=== PATIENT | female | born 1975 | race Caucasian/White ===

== ENCOUNTER 2018-07-12 17:48 | Emergency (ER) | payer MEDICAID ==
[~2018-07-12] VITALS: Ht 162.6 cm; Wt 68.0 kg
[~2018-07-12 17:48] MED LIST: ALPR-557 PO; AZIT-21 PO; CITA10TA70 PO; DM/P295L13 PO; DULO30CA3 PO; LMT25T PO; PRCD5U PO; PRD20T PO; TRM50T PO
--- OUTSIDE RECORDS SUMMARY | 2018-07-12 17:53 | XMS REPORT ---
Author Author [facility] Organization [facility] Address [address] [place], [place] [id number] Care Team Providers Care Syrup Mixer Helper Name Role Phone PCP Unavailable Allergies and Adverse Reactions Name Reaction Notes No known allergies Plan of Treatment Not available. Medications Active Name Start Date Estimated Completion Date SIG Comments lisinopril oral tablet 2.5 mg take 2 tablets (5 mg) by oral route once daily Lamictal oral tablet 25 mg take 1 tablet by oral route 2 times a day Cymbalta oral capsule,delayed release(DR/EC) 30 mg take 1 capsule by oral route 2 times a day Xanax oral tablet 0.5 mg take 1 tablet by oral route 2 times a day Flagyl oral tablet 500 mg take 1 tablet (500 mg) by oral route 2 times per day Problem List Description Status Onset Hypertension Active Depression Active Chronic pain Active arthritis Active Anxiety Active Essential Hypertension Active 11/26/2014 Vital Signs Date Time BP-Sys(mm[Hg] BP-Cora(mm[Hg]) HR(bpm) RR(rpm) Temp WT HT HC BMI BSA BMI Percentile O2 Sat(%) 11/11/2014 2:15:00 PM 140 mmHg 100 mmHg 97 bpm 18 rpm 99.6 F 173 lbs 64 in 29.70 kg/m2 1.88 m2 100 % Social History Name Description Comments Tobacco Current every day smoker Alcohol Use - Occasional Exercises regularly Uses seatbelts History of Procedures Not available. Results Summary Not available. History Of Immunizations Not available. History of Past Illness Name Date of Onset Comments Hypertension arthritis Anxiety Depression Chronic pain Essential Hypertension 11/26/2014 Essential Hypertension Nov 11 2014 2:16PM Payers Insurance Name Company Name Plan Name Plan Number Policy Number Policy Group Number Start Date [facility] - [facility] - [facility] Comm [id number] N/A History of Encounters Visit Date Visit Type Provider 11/11/2014 Office visit ROSALIO ATKINSON
--- OUTSIDE RECORDS SUMMARY | 2018-07-12 17:54 | XMS REPORT ---
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 Active 997077447 ALLERGIES No Known Allergies SOCIAL HISTORY Never Assessed PLAN OF CARE Activity Details Follow Up 6 Weeks Reason: VITAL SIGNS MEDICATIONS Medication Instructions Dosage Frequency Start Date End Date Duration Status Lamictal 25 MG Orally Twice a day 1 tablet 12h 24 Dec, 2014 30 days Active RESULTS No Results PROCEDURES No Known procedures IMMUNIZATIONS No Known Immunizations MEDICAL (GENERAL) HISTORY Type Description Date Medical History Hypertension Medical History Bipolar disorder Medical History Anxiety Medical History Depression Medical History arthritis in back Medical History drug abuse Medical History Tobacco User Surgical History abdominal surgery 4 wks old Surgical History genito-urinary tract surgery-LEEP 2000 Surgical History tubal ligation 02/2012 Hospitalization History Hospitalization for surgery only Hospitalization History UTI
--- OUTSIDE RECORDS SUMMARY | 2018-07-12 17:54 | XMS REPORT ---
Author Author STEPHANIE HEAD [facility] [employer] Address Unknown Phone Unavailable Care Team Providers Care Scrap Picker Name Role Phone STEPHANIE HEAD CP Unavailable Allergies, Adverse Reactions, Alerts Substance Reaction Event Type N.K.D.A. Info Not Available Non Drug Allergy Problems Problem Type Condition ICD-9 Code Onset Dates Condition Status Problem Other chronic pain 338.29 Active Problem Unspecified breast screening V76.10 Active Problem Irregular menstrual cycle 626.4 Active Problem Hypertension 401.9 Active Assessment Generalized anxiety disorder 300.02 Active Problem Bipolar disorder, unspecified 296.80 Active Problem Hyperlipidemia 272.4 Active Problem Lumbago 724.2 Active Problem Counseling on substance use and abuse V65.42 Active Problem Anxiety state, unspecified 300.00 Active Problem Bipolar I disorder, most recent episode (or current) mixed, moderate 296.62 Active Problem Major depressive disorder, recurrent episode, moderate 296.32 Active Problem Elevated blood pressure reading without diagnosis of hypertension 796.2 Active Assessment Bipolar I disorder, most recent episode (or current) mixed, moderate 296.62 Active Problem Generalized anxiety disorder 300.02 Active Problem Unspecified episodic mood disorder 296.90 Active Problem Unspecified backache 724.5 Active Problem Bipolar I disorder, most recent episode (or current) manic, severe, without mention of psychotic behavior 296.43 Active Problem Excessive or frequent menstruation 626.2 Active Problem Depressive disorder, not elsewhere classified 311 Active Problem Encounter for long-term (current) use of other medications V58.69 Active Medications Medication Code System Code Instructions Start Date End Date Status Dosage Lamictal [facility] [address]-83 100 MG Orally once a day January 21, 2015 1 tablet Cymbalta [facility] [address]-75 30 MG Orally once daily in the morning and 2 capsules orally once daily at night 1 capsule Xanax [facility] [address]-11 1 MG Orally Twice a day for 7 days then once a day for 7 days then D/C Xanax. Mar 20, 2015 1 tablet Lisinopril-Hydrochlorothiazide [facility] [address]-16 10-12.5 MG Orally Once a day 1 tablet Procedures Procedure Coding System Code Date Office Visit, Est Pt., Level 3 CPT-4 11387 Mar 20, 2015 Vital Signs Date/Time: Mar 20, 2015 Temperature 98.6 F Weight 167.7 lbs Height 64.5 in BMI 28.34 Index Blood Pressure Diastolic 80 mmHg Blood Pressure Systolic 130 mmHg Cardiac Monitoring Heart Rate 88 bpm Results No Known Results Summary Purpose [employer] Submission
--- OUTSIDE RECORDS SUMMARY | 2018-07-12 17:54 | XMS REPORT ---
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
--- OUTSIDE RECORDS SUMMARY | 2018-07-12 17:54 | XMS REPORT ---
Author Author EDER KLEIN Organization [employer] Address Unknown Phone Unavailable Care Team Providers Care Director Of Digital Marketing Name Role Phone EDER KLEIN CP Unavailable Allergies No Known Allergies Problems Problem Type Condition ICD-9 Code Onset Dates Condition Status Problem Other chronic pain 338.29 Active Problem Unspecified breast screening V76.10 Active Problem Irregular menstrual cycle 626.4 Active Problem Hypertension 401.9 Active Problem Bipolar disorder, unspecified 296.80 Active Problem Hyperlipidemia 272.4 Active Problem Lumbago 724.2 Active Problem Counseling on substance use and abuse V65.42 Active Problem Anxiety state, unspecified 300.00 Active Problem Bipolar I disorder, most recent episode (or current) mixed, moderate 296.62 Active Problem Major depressive disorder, recurrent episode, moderate 296.32 Active Problem Elevated blood pressure reading without diagnosis of hypertension 796.2 Active Problem Generalized anxiety disorder 300.02 Active [...] use of other medications V58.69 Active Medications No Known Medications Results No Known Results Summary Purpose [employer] Submission
--- OUTSIDE RECORDS SUMMARY | 2018-07-12 17:54 | XMS REPORT ---
Author Author EDER KLEIN Organization [employer] Address Unknown Phone Unavailable Care Team Providers Care Truck Jumper Name Role Phone EDER KLEIN CP Unavailable Allergies No Known Allergies Problems No Known Problems Medications No Known Medications Vital Signs Date/Time: Jun 08, 2016 Blood Pressure Diastolic 100 mmHg Blood Pressure Systolic 160 mmHg Height 64.5 in Results No Known Results Summary Purpose [employer] Submission
--- OUTSIDE RECORDS SUMMARY | 2018-07-12 17:54 | XMS REPORT ---
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 768727297 Problem Recurrent major depressive disorder, in partial remission F33.41 Active 06159365 Problem Bipolar disorder, current episode mixed, moderate F31.62 Active [id number] ALLERGIES No Information ENCOUNTERS Encounter Location Date Diagnosis [facility] [place] [id number] [place] [address] 48383- 1851 May, [facility] [place] [id number] [place] [address] 23833- 0723 Dec, Essential hypertension I10 ; Onychomycosis B35.1 and Encounter to establish care Z76.89 [facility] [place] [id number] [place] [address] 05119- 2937 November, Bipolar disorder, current episode mixed, moderate F31.62 ; 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 ; Anxiety F41.9 and Recurrent major depressive disorder, in partial remission F33.41 [facility] [id number] [place] [address] [id number] Sep, Dental caries K02.9 [facility] [id number] [place] [address] [id number] Sep, Dental examination Z01.20 [facility] [place] [id number] [place] [address] 35385- 0720 Dec, [facility] [place] [id number] [place] [address] 54485- 6655 November, Bipolar disorder, current episode mixed, moderate F31.62 and 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 [facility] [place] [address] [facility] [id number] [address] Sep, [facility] [place] [address] [facility] [id number], [place] [address] 4790 Sep, [facility] [place] [address] [facility] [id number] [place] [address] 33782- 2443 Sep, [facility] [place] [address] [facility] [id number], [place] [address] 6077 Sep, [facility] [place] [address] [facility] [id number], [place] [address]- 2723 Sep, [facility] [place] [address] [id number] [address] 1636 Sep, [facility] [place] [address] [address] 5993 Aug, [facility] [place] [address] [id number] [address] 8430 Aug, [facility] [place] [address] [address]- 5370 Jul, [facility] [place] [address] [facility] [id number], [place] [address]- 1307 Jul, [facility] [place] [address]005[address], [place] [address]- 2117 Jun, [facility] [place] [address] [facility] [id number], [place] [address]- 3849 Jun, [facility] [place] [address], [place] [address]- 0145 Jun, [facility] [address] [id number] [id number] 13 Jun, 2016 Dental examination Z01.20 and Dental caries K02.9 [facility] [place] [address] [place] [address]- 1049 Jun, [facility] [place] [address] [place] [address]- 9114 Jun, [facility] [place] [address] [id number] 7938 May, [facility] [place] [address] [place] [address]- 0511 May, [facility] [place] [address] [id number] [place] [address]- 0551 May, [facility] [place] [address] [place] [address]- 5756 May, [facility] [place] [address] 0845 Apr, [facility] [place] [address] 7625 November, [facility] [place] [address] 1591 Sep, Bipolar disorder, current episode mixed, moderate F31.62 [facility] [place] [address]005[address] 2987 Aug, Bipolar 1 disorder, mixed, moderate F31.62 [facility] [place] [address] 7239 Aug, [facility] [place] [address], [place] [address]- 4484 Jul, Pharyngitis J02.9 [facility] [place] [address] 9241 Jul, Bipolar 1 disorder, mixed, moderate F31.62 [facility] [place] [address] [id number], [place] [address]- 7595 Jun, Bipolar disorder, current episode mixed, moderate F31.62 [facility] [place] [address], [place] [address]- 5678 May, Bipolar disorder, current episode mixed, moderate F31.62 [facility] [place] [address] [place] [address] 38893- 9586 Apr, Bipolar disorder, current episode mixed, moderate F31.62 [facility] [place] [address] [place] [address] 72343- 8606 Mar, Bipolar 1 disorder, mixed, moderate 296.62 [facility] [place] [address] [place] [address] 96791- 3272 Feb, Bipolar 1 disorder, mixed, moderate 296.62 [facility] [place] [address] [place] [address] 06434- 1108 Feb, [facility] [place] [id number] [place] [address] 60416- 2320 Feb, Bipolar 1 disorder, mixed, moderate 296.62 [facility] [place] [address] [place] [address] 88650- 6717 Feb, Bipolar I disorder, most recent episode (or current) mixed, moderate 296.62 and Generalized anxiety disorder 300.02 [facility] [place] [address] [place] [address] 30102- 9034 Jan, Bipolar 1 disorder, mixed, moderate 296.62 [facility] [place] [address] [place] [address] 66762- 2405 Jan, [facility] [place] [address] [place] [address] 49054- 4170 Jan, [facility] [place] [id number] [place] [address] 83854- 4144 Jan, Bipolar 1 disorder, mixed, moderate 296.62 [facility] [place] [address] [address]- 7803 Jan, [facility] [place] [id number] [place] [address] 37183- 4180 Jan, Bipolar 1 disorder, mixed, moderate 296.62 [facility] [place] [address] [place] [address] 23979- 8360 Jan, Arthritis 716.90 ; Migraine 346.90 and Hypertension 401.9 [facility] [place] [address] [address]- 9515 Dec, [facility] [place] [id number] [place] [address] 31381- 2883 Dec, Anxiety state, unspecified 300.00 and Bipolar I disorder, most recent episode (or current) mixed, moderate 296.62 [facility] [place] [id number] [place] [address] 79190- 4603 Dec, Bipolar I disorder, most recent episode (or current) manic, severe, without mention of psychotic behavior 296.43 [facility] [place] [address] [place] [address] 27698- 4744 Dec, Bipolar I disorder, most recent episode (or current) mixed, moderate 296.62 and Generalized anxiety disorder 300.02 [facility] [place] [address] [place] [address] 80059- 8489 Dec, [facility] [place] [address], [place] [address]- 5428 Dec, [facility] [place] [address], [place] [address]- 2118 November, [facility] [place] [address] [place] [address] 52854- 7573 November, Bipolar I disorder, most recent episode (or current) manic, severe, without mention of psychotic behavior 296.43 [facility] [place] [address], [place] [address]- 3418 Oct, [facility] [place] [address], [place] [address]- 7595 Oct, [facility] [place] [address] [id number] [place] [address]- 8632 16 Sep, 2014 [facility] [place] [facility] [address] [id number] [place] [address]- 0492 16 Sep, 2014 [facility] [place] [facility] [address] [id number] [place] [address]- 2546 15 Aug, 2014 [facility] [place] [facility] [address] [id number] [place] [address]- 3666 Aug, 2014 [facility] [place] [facility] [address] [id number] [place] [address]- 0557 Aug, 2014 [facility] [place] [facility] [address] [id number] [place] [address]- 2062 Aug, 2014 [facility] [place] [facility] [address] [id number] [place] [address]- 6557 Aug, 2014 [facility] [place] [facility] [address] [id number] [place] [address]- 2299 10 Aug, 2014 [facility] [place] [facility] [address] [id number] [place] [address]- 6331 09 Aug, 2014 [facility] [place] [facility] [address] [id number] [place] [address]- 3539 09 Aug, 2014 [facility] [place] [facility] [address] [facility] [id number] [place] [address]- 5632 Jul, [facility] [place] [facility] [address] [id number] [place] [address]- 6518 Jul, [facility] [place] [facility] [address] [id number] [place] [address]- 5163 16 Jul, 2014 [facility] [place] [facility] [address] [id number] [place] [address]- 2546 Jul, [facility] [place] [facility] [address] [id number] [place] [address]- 2549 Jul, [facility] [place] [facility] [address] [id number] [place] [address]- 2156 Jul, [facility] [place] [facility] [address] [id number] [place] [address]- 3872 Jul, [facility] [place] [facility] [address] [id number] [place] [address]- 7216 Jun, [facility] [place] [facility] [address] [facility] [id number] [place] [address]- 1932 Jun, [facility] [place] [facility] [address] [id number] [place] [address]- 6996 Jun, [facility] [place] [facility] [address] [id number] [place] [address]- 4657 Jun, [facility] [place] [facility] [address] [id number] [place] [address]- 5415 Jun, [facility] [place] [facility] [address] [id number] [place] [address]- 2985 May, [facility] [place] [facility] [address] [id number], [place] [address]- 3643 May, [facility] [place] [facility] [address] [id number] [place] [address]- 8336 May, [facility] [place] [facility] [address] [id number] [place] [address]- 9442 May, [facility] [place] [facility] [address] [id number], [place] [address]- 4582 May, [facility] [place] [facility] [address] [id number], [place] [address]- 1309 May, [facility] [place] [facility] [address] [id number], [place] [address]- 6072 May, [facility] [place] [facility] [address] [id number], [place] [address]- 1504 May, [facility] [place] [facility] [address] [id number], [place] [address]- 2228 May, [facility] [place] [facility] [address] [id number] [place] [address]- 9559 May, [facility] [place] [facility] [address] [id number] [place] [address]- 0117 Apr, [facility] [place] [facility] [address] [id number] [place] [address]- 7270 Apr, [facility] [place] [facility] [address] [id number] [place] [address]- 9196 Apr, [facility] [place] [facility] [address] [id number] [place] [address]- 6914 Apr, [facility] [place] [facility] [address] [id number] [place] [address]- 2505 Apr, [facility] [place] [facility] [address] [id number] [place] [address]- 0545 Apr, [facility] [place] [facility] [address] [id number] [place] [address]- 7852 Apr, [facility] [place] [facility] [address] [id number] [place] [address]- 1993 Apr, [facility] [place] [facility] [address] [id number] [place] [address]- 4812 Apr, [facility] [place] [facility] [address] [id number] [place] [address]- 5189 Apr, [facility] [place] [facility] [address] [id number] [place] [address]- 3636 Apr, [facility] [place] [facility] [address] [id number] [place] [address]- 7258 Apr, [facility] [place] [facility] [address] [id number] [place] [address]- 2595 Apr, [facility] [place] [facility] [address] [id number] [place] [address]- 2129 Apr, [facility] [place] [facility] [address] [id number] [place] [address]- 6713 Mar, [facility] [place] [facility] [address] [id number] [place] [address]- 9569 Mar, [facility] [place] [facility] [address] [id number] [place] [address]- 6961 Mar, [facility] [place] [facility] [address] [id number] [place] [address]- 5194 Mar, [facility] [place] [facility] [address] [id number] [place] [address]- 3242 Feb, [facility] [place] [facility] [address] [id number] [place] [address]- 0440 Feb, [facility] [place] [facility] [address] [id number] [place] [address]- 1811 Feb, [facility] [place] [facility] [address] [id number] [place] [address]- 6544 Feb, [facility] [place] [facility] [address] [id number] [place] [address]- 2182 Feb, [facility] [place] [facility] [address] [id number] [place] [address]- 8393 Feb, [facility] [place] [facility] [address] [id number] [place] [address]- 6319 Feb, [facility] [place] [facility] [address] [id number] [place] [address]- 4822 Feb, [facility] [place] [facility] [address] [id number] [place] [address]- 7021 Jan, [facility] [place] [facility] [address] [id number] [place] [address]- 5309 Jan, [facility] [place] [facility] [address] [id number] [place] [address]- 3316 Jan, [facility] [place] [facility] [address] [id number] [place] [address]- 9711 Jan, [facility] [place] [facility] [address] [id number] [place] [address]- 0584 14 Jan, 2014 [facility] [place] [facility] [address] [id number] [place] [address]- 8667 14 Jan, 2014 [facility] [place] [facility] [address] [id number] [place] [address]- 8312 Jan, [facility] [place] [facility] [address] [id number] [place] [address]- 6899 Oct, [facility] [place] [facility] [address] [id number] [place] [address]- 9494 Oct, [facility] [place] [facility] [address] [id number] [place] [address]- 9055 Sep, [facility] [place] [facility] [address] [id number] [place] [address]- 4128 Sep, [facility] [place] [facility] [address] [facility] [id number] [place] [address]- 3209 Aug, [facility] [place] [facility] [address] [id number] [place] [address]- 1949 Aug, [facility] [place] [facility] [address] [facility] [id number] [place] [address]- 9458 Aug, [facility] [place] [facility] [address] [facility] [id number] [place] [address]- 2942 Aug, [facility] [place] [facility] [address] [facility] [id number] [place] [address]- 4086 Aug, [facility] [place] [facility] [address] [id number], [place] [address]- 7858 Aug, [facility] [place] [facility] [address] [id number] [place] [address]- 2020 Aug, [facility] [place] [facility] [address] [id number] [place] [address]- 5076 Aug, [facility] [place] [facility] [address] [facility] [id number], [place] [address]- 6157 Jul, [facility] [place] [facility] [address] [id number] [place] [address]- 6464 Jul, [facility] [address] [id number] [place] [address]- 4062 Jun, [facility] [address] [id number] [place] [address]- 8509 Jun, [facility] [address] [id number] [place] [address]- 0789 Jun, [facility] [address] [id number] [place] [address]- 4557 Jun, [facility] [address] [id number] [place] [address]- 7282 Jun, [facility] [address] [id number] [place] [address]- 7086 Feb, [facility] [address] [id number] [place] [address]- 7024 Jan, [facility] [address] [id number] [place] [address]- 1386 Jan, [facility] [address] [id number] [place] [address]- 9168 Dec, [facility] [address] [id number] [place] [address]- 4876 Dec, [facility] [address] [id number] [place] [address]- 9508 November, [facility] [address] [id number] [place] [address]- 3898 Oct, [facility] [place] [facility] [address] [id number] [place] [address]- 5976 Oct, [facility] [address] [id number] [place] [address]- 0011 Oct, [facility] [address] [id number] [place] [address]- 8816 Sep, [facility] [address] [facility] [id number] [place] [address]- 1566 Dec, IMMUNIZATIONS No Known Immunizations SOCIAL HISTORY Never Assessed REASON FOR VISIT refill request PLAN OF CARE VITAL SIGNS MEDICATIONS Medication Instructions Dosage Frequency Start Date End Date Duration Status Lisinopril-Hydrochlorothiazide 20-12.5 MG Orally Once a day 1 tablet 24h 30 Active RESULTS No Results PROCEDURES No Known procedures INSTRUCTIONS MEDICATIONS ADMINISTERED No Known Medications MEDICAL (GENERAL) HISTORY Type Description Date Medical History Hypertension Medical History Bipolar disorder Medical History Anxiety Medical History Depression Medical History arthritis in back Medical History drug abuse Medical History Tobacco User Medical History hypoglycemia Surgical History abdominal surgery 4 wks old Surgical History genito-urinary tract surgery-LEEP 2000 Surgical History tubal ligation 02/2012 Surgical History stomach surgery 1976 Hospitalization History Hospitalization for surgery only Hospitalization History UTI
--- OUTSIDE RECORDS SUMMARY | 2018-07-12 17:55 | XMS REPORT ---
Author Author [facility], [facility] eClinicalWorks Address Unknown Phone Unavailable Care Team Providers Care Fnps Name Role Phone [facility], [facility] CP Unavailable Allergies No Known Allergies Problems [...] diagnosis of hypertension 796.2 Active Assessment Bipolar 1 disorder, mixed, moderate 296.62 Active Problem Generalized anxiety [...] medications V58.69 Active Medications No Known Medications Procedures Procedure Coding System Code Date CARE COORDINATION CPT-4 S0281 Mar 24, 2015 Results No Known Results Summary Purpose eClinicalWorks Submission
--- OUTSIDE RECORDS SUMMARY | 2018-07-12 17:55 | XMS REPORT ---
Author Author [facility], [facility] eClinicalWorks Address Unknown Phone Unavailable Care Team Providers Care Stripping And Booking Machine Operator Name Role Phone [facility], [facility] CP Unavailable Allergies No Known Allergies Problems Problem Type Condition Code Onset Dates Condition Status Problem Other [...] Active Assessment Bipolar 1 disorder, mixed, moderate F31.62 Active Problem Generalized anxiety disorder 300.02 Active [...] Medications Procedures Procedure Coding System Code Date HEALTH PROMOTION CPT-4 S0280 Aug 20, 2015 Results No Known Results Summary Purpose eClinicalWorks Submission
--- OUTSIDE RECORDS SUMMARY | 2018-07-12 17:55 | XMS REPORT ---
Author Author [facility], [facility] eClinicalWorks Address Unknown Phone Unavailable Care Team Providers Care Sheet Metal Worker Apprentice Name Role Phone [facility], [facility] CP Unavailable Allergies No Known Allergies [...] diagnosis of hypertension 796.2 Active Assessment Bipolar disorder, current episode mixed, moderate F31.62 Active Problem Generalized anxiety [...] System Code Date HEALTH PROMOTION CPT-4 S0280 Jun 19, 2015 Results No Known Results Summary Purpose eClinicalWorks Submission
--- OUTSIDE RECORDS SUMMARY | 2018-07-12 17:55 | XMS REPORT ---
Author Author [facility], [facility] eClinicalWorks Address Unknown Phone Unavailable Care Team Providers Care Cook Roast Name Role Phone [facility], [facility] CP Unavailable Allergies No Known Allergies [...] System Code Date HEALTH PROMOTION CPT-4 S0280 Mar 20, 2015 Results No Known Results Summary Purpose eClinicalWorks Submission
--- OUTSIDE RECORDS SUMMARY | 2018-07-12 17:55 | XMS REPORT ---
Author Author [facility], [facility] eClinicalWorks Address Unknown Phone Unavailable Care Team Providers Care Select Banker Name Role Phone [facility], [facility] CP Unavailable Allergies No Known [...] System Code Date CARE COORDINATION CPT-4 S0281 May 12, 2015 Results No Known Results Summary Purpose eClinicalWorks Submission
--- OUTSIDE RECORDS SUMMARY | 2018-07-12 17:55 | XMS REPORT ---
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
--- OUTSIDE RECORDS SUMMARY | 2018-07-12 17:55 | XMS REPORT ---
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 Unknown Non Drug Allergy Jun, Unknown SOCIAL HISTORY No smoking Hx information available PLAN OF CARE Activity Details Follow Up prn Reason:will call VITAL SIGNS MEDICATIONS Medication Instructions Dosage Frequency Start Date End Date Duration Status Lisinopril-Hydrochlorothiazide 10-12.5 MG Orally Once a day 1 tablet 24h Active RESULTS No Results PROCEDURES Procedure Date Ordered Related Diagnosis Body Site LTD ORAL EVALUATION - PROBLEM FOCUS Jul 12, 2016 INTRAORL-PERIAPICAL 1 FILM 75890 Jul 12, 2016 EXTRAC ERUPTED TOOTH/EXPOSED ROOT Jul 12, 2016 BITEWING - SINGLE FILM Jul 12, 2016 IMMUNIZATIONS No Known Immunizations
--- OUTSIDE RECORDS SUMMARY | 2018-07-12 17:55 | XMS REPORT ---
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
--- OUTSIDE RECORDS SUMMARY | 2018-07-12 17:55 | XMS REPORT ---
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
--- OUTSIDE RECORDS SUMMARY | 2018-07-12 17:55 | XMS REPORT ---
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
--- OUTSIDE RECORDS SUMMARY | 2018-07-12 17:55 | XMS REPORT ---
Author Author [facility], [facility] eClinicalWorks Address Unknown Phone Unavailable Care Team Providers Care Plugger Worker Name Role Phone [facility], [facility] Unavailable Allergies No Known [...] System Code Date [facility] [employer] CPT-4 S0280 Jul 27, 2015 Results No Known Results Summary Purpose eClinicalWorks Submission
--- OUTSIDE RECORDS SUMMARY | 2018-07-12 17:55 | XMS REPORT ---
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
--- OUTSIDE RECORDS SUMMARY | 2018-07-12 17:56 | XMS REPORT ---
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 234258973 Problem Recurrent major depressive disorder, in partial remission F33.41 Active 37320355 Problem Bipolar disorder, current episode mixed, moderate F31.62 Active 568370474 ALLERGIES No Known Allergies ENCOUNTERS Encounter Location Date Diagnosis [facility] [id number] [place] [address]- [address]871 Feb, [facility] [address] [address] Dec, Essential hypertension I10 ; Onychomycosis B35.1 and Encounter to establish care Z76.89 [facility] [id number] [place] [address]115- 4942 November, Bipolar disorder, current episode mixed, moderate F31.62 ; 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 ; Anxiety F41.9 and Recurrent major depressive disorder, in partial remission F33.41 [facility] [id number] [place] [id number] Sep, Dental caries K02.9 [facility] [id number] [place] [address] [id number] Sep, Dental examination Z01.20 [facility] [id number] [place] [address] 17845- 9829 Dec, [facility] [id number] [place] [address] 93255- 2113 November, Bipolar disorder, current episode mixed, moderate F31.62 and 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 [facility] [address] [id number], [place] [address] Sep, [facility] [address] [facility] [id number], [place] [address] 7076 Sep, [facility] [id number] [place] [address]997- 7891 Sep, [facility] [address] [facility] [id number], [place] [address] 6[address] Sep, [facility] [address] [facility] [id number] [place] [address] 61231- 9932 Sep, [facility] [address] [facility] [id number], [place] [address] 3108 Sep, [facility] [address] [id number] [address] 3[address] Aug, [facility] [address] [facility] [id number], [place] [address] 57[address] Aug, [facility] [address] [id number], [place] [address] 60[address] Jul, [facility] [address] [facility] [id number], [place] [address] 8[address] Jul, [facility] [address], [place] [address] Jun, [facility] [address] [facility] [id number], [place] [address] 6316 Jun, [facility] [address] [facility] [id number], [place] [address] 5[address] Jun, [facility] [address] [id number] [id number] 13 Jun, 2016 Dental examination Z01.20 and Dental caries K02.9 [facility] [address] [place] [address] 79[address] Jun, [facility] [address] [address] Jun, [facility] [address] [address] May, [facility] [id number] [place] [address], [place] [address]- 6047 May, [facility] [address] [id number] [place] [address]- 1472 May, [facility] [address] [place] [address], [place] [address]- 3027 May, [facility] [address] 65[address] Apr, [facility] [address] [place] [address] November, [facility] [address] [address] [address] Sep, Bipolar disorder, current episode mixed, moderate F31.62 [facility] [address] [address] Aug, Bipolar 1 disorder, mixed, moderate F31.62 [facility] [address] [address] Aug, [facility] [address], [place] [address] 9506 Jul, Pharyngitis J02.9 [facility] [address] [address] Jul, Bipolar 1 disorder, mixed, moderate F31.62 [facility] [address] [id number] [address] 2084 Jun, Bipolar disorder, current episode mixed, moderate F31.62 [facility] [address], [place] [address]- 0311 May, Bipolar disorder, current episode mixed, moderate F31.62 [facility] [address] [place] [address] 69585- 5449 Apr, Bipolar disorder, current episode mixed, moderate F31.62 [facility] [address] [place] [address] 03416- 8947 Mar, Bipolar 1 disorder, mixed, moderate 296.62 [facility] [address] [place] [address] 23016- 9575 Feb, Bipolar 1 disorder, mixed, moderate 296.62 [facility] [address] [place] [address] 10431- 8635 Feb, [facility] [id number] [place] [address] 18375- 1434 Feb, Bipolar 1 disorder, mixed, moderate 296.62 [facility] [address] [place] [address] 28513- 2716 Feb, Bipolar I disorder, most recent episode (or current) mixed, moderate 296.62 and Generalized anxiety disorder 300.02 [facility] [address] [place] [address] 91227- 4357 Jan, Bipolar 1 disorder, mixed, moderate 296.62 [facility] [address], [place] [address]- 0320 Jan, [facility] [id number] [place] [address] 14651- 0706 Jan, [facility] [id number] [place] [address] 25020- 7486 Jan, Bipolar 1 disorder, mixed, moderate 296.62 [facility] [address], [place] [address]- 8468 Jan, [facility] [id number] [place] [address] 88595- 5839 Jan, Bipolar 1 disorder, mixed, moderate 296.62 [facility] [id number] [place] [address] 44417- 4427 Jan, Arthritis 716.90 ; Migraine 346.90 and Hypertension 401.9 [facility] [address], [place] [address]- 2425 Dec, [facility] [id number] [place] [address] 14480- 2881 Dec, Anxiety state, unspecified 300.00 and Bipolar I disorder, most recent episode (or current) mixed, moderate 296.62 [facility] [id number] [place] [address] 11148- 7875 Dec, Bipolar I disorder, most recent episode (or current) manic, severe, without mention of psychotic behavior 296.43 [facility] [address] [place] [address] 53171- 5106 Dec, Bipolar I disorder, most recent episode (or current) mixed, moderate 296.62 and Generalized anxiety disorder 300.02 [facility] [address] [place] [address] 33849- 7526 Dec, [facility] [address], [place] [address]- 9002 Dec, [facility] [address], [place] [address]- 8726 November, [facility] [address] [place] [address] 33049- 9155 November, Bipolar I disorder, most recent episode (or current) manic, severe, without mention of psychotic behavior 296.43 [facility] [address], [place] [address]- 2220 Oct, [facility] [address], [place] [address]- 5807 Oct, [facility] [id number] [place] [address]- 9155 16 Sep, 2014 [facility] [place] [facility] [address] [id number] [place] [address]- 3426 Sep, [facility] [place] [facility] [address] [id number] [place] [address]- 9076 15 Aug, 2014 [facility] [place] [facility] [address] [id number] [place] [address]- 5756 Aug, 2014 [facility] [place] [facility] [address] [id number] [place] [address]- 9663 Aug, 2014 [facility] [place] [facility] [address] [id number] [place] [address]- 4295 Aug, 2014 [facility] [place] [facility] [address] [id number] [place] [address]- 8457 Aug, 2014 [facility] [place] [facility] [address] [id number] [place] [address]- 5916 Aug, 2014 [facility] [place] [facility] [address] [id number] [place] [address]- 8289 Aug, [facility] [place] [facility] [address] [id number] [place] [address]- 9771 Aug, [facility] [place] [facility] [address] [id number] [place] [address]- 9033 Jul, [facility] [place] [facility] [address] [id number] [place] [address]- 1540 Jul, [facility] [place] [facility] [address] [id number] [place] [address]- 2666 Jul, [facility] [place] [facility] [address] [id number] [place] [address]- 7531 Jul, [facility] [place] [facility] [address] [id number] [place] [address]- 6476 Jul, [facility] [place] [facility] [address] [id number] [place] [address]- 5491 Jul, [facility] [place] [facility] [address] [id number] [place] [address]- 8763 Jul, [facility] [place] [facility] [address] [id number] [place] [address]- 8146 Jun, [facility] [place] [facility] [address] [id number] [place] [address]- 1465 Jun, [facility] [place] [facility] [address] [id number] [place] [address]- 3232 Jun, [facility] [place] [facility] [address] [id number] [place] [address]- 9802 Jun, [facility] [place] [facility] [address] [id number] [place] [address]- 6720 Jun, [facility] [place] [facility] [address] [id number] [place] [address]- 5349 May, [facility] [place] [facility] [address] [id number] [place] [address]- 6570 May, [facility] [place] [facility] [address] [id number] [place] [address]- 1335 May, [facility] [place] [facility] [address] [id number] [place] [address]- 0692 May, [facility] [place] [facility] [address] [id number], [place] [address]- 0481 May, [facility] [place] [facility] [address] [id number], [place] [address]- 5013 May, [facility] [place] [facility] [address] [id number] [place] [address]- 6722 May, [facility] [place] [facility] [address] [id number], [place] [address]- 7151 May, [facility] [place] [facility] [address] [id number], [place] [address]- 0981 May, [facility] [place] [facility] [address] [id number] [place] [address]- 4879 May, [facility] [place] [facility] [address] [id number] [place] [address]- 3215 Apr, [facility] [place] [facility] [address] [id number] [place] [address]- 8861 Apr, [facility] [place] [facility] [address] [id number] [place] [address]- 6439 Apr, [facility] [place] [facility] [address] [id number] [place] [address]- 6443 Apr, [facility] [place] [facility] [address] [id number] [place] [address]- 8888 Apr, [facility] [place] [facility] [address] [id number] [place] [address]- 4931 Apr, [facility] [place] [facility] [address] [id number] [place] [address]- 4645 Apr, [facility] [place] [facility] [address] [id number] [place] [address]- 8643 Apr, [facility] [place] [facility] [address] [id number] [place] [address]- 2066 Apr, [facility] [place] [facility] [address] [id number] [place] [address]- 4958 Apr, [facility] [place] [facility] [address] [id number] [place] [address]- 3851 Apr, [facility] [place] [facility] [address] [id number] [place] [address]- 0437 Apr, [facility] [place] [facility] [address] [id number] [place] [address]- 1940 Apr, [facility] [place] [facility] [address] [id number] [place] [address]- 6679 Apr, [facility] [place] [facility] [address] [id number] [place] [address]- 8933 Mar, [facility] [place] [facility] [address] [id number] [place] [address]- 0083 Mar, [facility] [place] [facility] [address] [id number] [place] [address]- 8841 Mar, [facility] [place] [facility] [address] [id number] [place] [address]- 9579 Mar, [facility] [place] [facility] [address] [id number] [place] [address]- 9780 Feb, [facility] [place] [facility] [address] [id number] [place] [address]- 1795 Feb, [facility] [place] [facility] [address] [id number] [place] [address]- 7944 Feb, [facility] [place] [facility] [address] [id number] [place] [address]- 0073 Feb, [facility] [place] [facility] [address] [id number] [place] [address]- 3345 Feb, [facility] [place] [facility] [address] [id number] [place] [address]- 8500 Feb, [facility] [place] [facility] [address] [id number] [place] [address]- 7156 Feb, [facility] [place] [facility] [address] [id number] [place] [address]- 3106 Feb, [facility] [place] [facility] [address] [id number] [place] [address]- 4189 Jan, [facility] [place] [facility] [address] [id number] [place] [address]- 9604 Jan, [facility] [place] [facility] [address] [id number] [place] [address]- 9182 Jan, [facility] [place] [facility] [address] [id number] [place] [address]- 9791 Jan, [facility] [place] [facility] [address] [id number] [place] [address]- 4670 14 Jan, 2014 [facility] [place] [facility] [address] [id number] [place] [address]- 2961 14 Jan, 2014 [facility] [place] [facility] [address] [id number] [place] [address]- 5395 Jan, [facility] [place] [facility] [address] [id number] [place] [address]- 3913 Oct, [facility] [place] [facility] [address] [id number] [place] [address]- 4217 Oct, [facility] [place] [facility] [address] [id number] [place] [address]- 9072 Sep, [facility] [place] [facility] [address] [id number] [place] [address]- 7272 Sep, [facility] [place] [facility] [address] [facility] [id number] [place] [address]- 0998 Aug, [facility] [place] [facility] [address] [facility] [id number] [place] [address]- 9285 Aug, [facility] [place] [facility] [address] [facility] [id number] [place] [address]- 9381 Aug, [facility] [place] [facility] [address] [facility] [id number] [place] [address]- 0556 Aug, [facility] [place] [facility] [address] [facility] [id number] [place] [address]- 9464 Aug, [facility] [place] [facility] [address] [facility] [id number], [place] [address]- 4022 Aug, [facility] [place] [facility] [address] [id number] [place] [address]- 9085 Aug, [facility] [place] [facility] [address] [facility] [id number] [place] [address]- 7996 Aug, [facility] [place] [facility] [address] [facility] [id number] [place] [address]- 3275 Jul, [facility] [place] [facility] [address] [id number] [place] [address]- 2896 Jul, [facility] [address] [id number] [place] [address]- 6778 Jun, [facility] [address] [id number] [place] [address]- 6619 Jun, [facility] [address] [id number] [place] [address]- 9377 Jun, [facility] [address] [id number] [place] [address]- 6566 Jun, [facility] [address] [id number] [place] [address]- 2219 Jun, [facility] [address] [id number] [place] [address]- 65[address] Feb, [facility] [address] [id number] [place] [address] Jan, [facility] [address] [id number] [place] [address] Jan, [facility] [address] [id number] [place] [address] Dec, [facility] [place] [facility] [address] [id number] [place] [address] Dec, [facility] [address] [id number], [place] [address] November, [facility] [place] [facility] [address] [id number] [place] [address] Oct, [facility] [place] [facility] [address] [id number] [place] [address] Oct, [facility] [place] [facility] [address] [id number] [place] [address] Oct, [facility] [place] [facility] [address] [id number] [place] [address] Sep, [facility] [address] [facility] [id number] [place] [address] Dec, IMMUNIZATIONS No Known Immunizations SOCIAL HISTORY Never Assessed REASON FOR VISIT Blood Pressure-awoods PLAN OF CARE Activity Details Follow Up 3 Months Reason: VITAL SIGNS Height 64.5 in 2018-01-03 Weight 191 lbs 2018-01-03 Temperature 98.3 degrees Fahrenheit 2018-01-03 Heart Rate 86 bpm 2018-01-03 Respiratory Rate 18 2018-01-03 BMI 32.28 kg/m2 2018-01-03 Blood pressure systolic 115 mmHg 2018-01-03 Blood pressure diastolic 72 mmHg 2018-01-03 MEDICATIONS Medication Instructions Dosage Frequency Start Date End Date Duration Status Lisinopril-Hydrochlorothiazide 20-12.5 MG Orally Once a day 1 tablet 24h 30 days Active Zoloft 50 mg Orally Once a day 1 tablet 24h November, 30 day(s) Active Terbinafine HCl 250 MG Orally Once a day 1 tablet 24h Dec,Dec 12 Weeks Active Rexulti 2 MG Orally Once a day 1 tablet 24h November, 30 day(s) Active RESULTS No Results PROCEDURES No Known [...]
--- OUTSIDE RECORDS SUMMARY | 2018-07-12 17:56 | XMS REPORT ---
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 Active 448053499 Problem Recurrent major depressive disorder, in partial remission F33.41 Active 99041942 Problem Bipolar disorder, current episode mixed, moderate F31.62 Active [id number] ALLERGIES No Known Allergies ENCOUNTERS Encounter Location Date Diagnosis [facility] [id number] [place] [address] 20111- 8895 Feb, [facility] [id number] [place] [address] 30375- 3499 Dec, Essential hypertension I10 ; Onychomycosis B35.1 and Encounter to establish care Z76.89 [facility] [id number] [place] [address] 28099- 2887 November, Bipolar disorder, current episode mixed, moderate F31.62 ; 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 ; Anxiety F41.9 and Recurrent major depressive disorder, in partial remission F33.41 [facility] [id number] [id number] Sep, Dental caries K02.9 [facility] [id number] [place] [id number] Sep, Dental examination Z01.20 [facility] [id number] [place] [address] 02366- 8234 Dec, [facility] [address] [place] [address] 3397 November, Bipolar disorder, current episode mixed, moderate F31.62 and 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 [facility] [id number] [address] 45[address] Sep, [facility] [id number], [place] [address] 3620 Sep, [facility] [id number] [place] [address] 63943- 2444 Sep, [facility] [id number] [place] [address] 08027- 8669 Sep, [facility] [id number] [place] [address] 98323- 9278 Sep, [facility] [id number] [place] [address] 29700- 4817 Sep, [facility] [id number] [place] [address] 96430- 2688 Aug, [facility] [address], [place] [address] 5974 Aug, [facility] [address], [place] [address] 4859 Jul, [facility] [address], [place] [address] 2171 Jul, [facility] [address], [place] [address] 4599 Jun, [facility] [address], [place] [address] 4306 Jun, [facility] [address], [place] [address] 1863 Jun, [facility] [address] [id number] [id number] 13 Jun, 2016 Dental examination Z01.20 and Dental caries K02.9 [facility] [id number], [place] [address] 8584 Jun, [facility] [id number] 3496 Jun, [facility] [id number] 8594 May, [facility] [id number] [place] [address], [place] [address]- 7751 May, [facility] [id number] [place] [address]- 2901 May, [facility] [id number] [place] [address], [place]- 3629 May, [facility] [id number] [place] [address]- 5632 Apr, [facility] [address], [place] [address] 3858 November, [facility] [address], [place] [address]- 5287 Sep, Bipolar disorder, current episode mixed, moderate F31.62 [facility] [address], [place] [address]- 9465 Aug, Bipolar 1 disorder, mixed, moderate F31.62 [facility] [address], [place] [address]- 9102 Aug, [facility] [address], [place] [address]- 9526 Jul, Pharyngitis J02.9 [facility] [address] 9707 Jul, Bipolar 1 disorder, mixed, moderate F31.62 [facility] [address], [place] [address]- 5277 Jun, Bipolar disorder, current episode mixed, moderate F31.62 [facility] [address], [place] [address] 1891 May, Bipolar disorder, current episode mixed, moderate F31.62 [facility] [address] [place] [address] 21150- 3866 Apr, Bipolar disorder, current episode mixed, moderate F31.62 [facility] [id number] [place] [address] 569869- 0440 Mar, Bipolar 1 disorder, mixed, moderate 296.62 [facility] [id number] [place] [address] 01390- 5362 Feb, Bipolar 1 disorder, mixed, moderate 296.62 [facility] [id number] [place] [address] 65388- 3797 Feb, [facility] [id number] [place] [address] 50615- 2310 Feb, Bipolar 1 disorder, mixed, moderate 296.62 [facility] [id number] [place] [address] 40363- 3898 Feb, Bipolar I disorder, most recent episode (or current) mixed, moderate 296.62 and Generalized anxiety disorder 300.02 [facility] [address], [place] [address]- 8726 Jan, Bipolar 1 disorder, mixed, moderate 296.62 [facility] [address], [place] [address]- 6579 Jan, [facility] [id number] [place] [address] 51124- 1778 Jan, [facility] [id number] [place] [address] 92828- 8344 Jan, Bipolar 1 disorder, mixed, moderate 296.62 [facility] [address], [place] [address]- 3169 Jan, [facility] [id number] [address]- 0869 Jan, Bipolar 1 disorder, mixed, moderate 296.62 [facility] [id number] [place] [address] 71139- 2106 Jan, Arthritis 716.90 ; Migraine 346.90 and Hypertension 401.9 [facility] [address], [place] [address]- 8334 Dec, [facility] [id number] [place] [address] 49675- 4235 Dec, Anxiety state, unspecified 300.00 and Bipolar I disorder, most recent episode (or current) mixed, moderate 296.62 [facility] [id number] [place] [address] 34080- 1440 Dec, Bipolar I disorder, most recent episode (or current) manic, severe, without mention of psychotic behavior 296.43 [facility] [id number] [place] [address] 34882- 6306 Dec, Bipolar I disorder, most recent episode (or current) mixed, moderate 296.62 and Generalized anxiety disorder 300.02 [facility] [address] [place] [address] 18501- 6304 Dec, [facility] [address], [place] [address]- 5325 Dec, [facility] [address], [place] [address]- 1838 November, [facility] [id number] [place] [address] 62520- 4794 November, Bipolar I disorder, most recent episode (or current) manic, severe, without mention of psychotic behavior 296.43 [facility] [address], [place] [address]- 7659 Oct, [facility] [address], [place] [address]- 9554 Oct, [facility] [id number] [place] [address]- [address] 16 Sep, 2014 [facility] [place] [facility] [address] [id number] [place] [address]- 7318 Sep, [facility] [place] [facility] [address] [id number] [place] [address]- 8846 15 Aug, 2014 [facility] [place] [facility] [address] [id number] [place] [address]- 4482 Aug, 2014 [facility] [place] [facility] [address] [id number] [place] [address]- 5724 Aug, 2014 [facility] [place] [facility] [address] [id number] [place] [address]- 9510 Aug, 2014 [facility] [place] [facility] [address] [id number] [place] [address]- 4586 Aug, 2014 [facility] [place] [facility] [address] [id number] [place] [address]- 0959 Aug, [facility] [place] [facility] [address] [id number] [place] [address]- 5031 Aug, [facility] [place] [facility] [address] [facility] [id number] [place] [address]- 7856 Aug, [facility] [place] [facility] [address] [id number] [place] [address]- 8744 Jul, [facility] [place] [facility] [address] [id number], [place] [address]- 6076 Jul, [facility] [place] [facility] [address] [id number] [place] [address]- 2444 Jul, [facility] [place] [facility] [address] [id number] [place] [address]- 4727 Jul, [facility] [place] [facility] [address] [id number] [place] [address]- 1691 Jul, [facility] [place] [facility] [address] [id number], [place] [address]- 0631 Jul, [facility] [place] [facility] [address] [id number] [place] [address]- 7446 Jul, [facility] [place] [facility] [address] [id number] [place] [address]- 6349 Jun, [facility] [place] [facility] [address] [id number] [place] [address]- 4407 Jun, [facility] [place] [facility] [address] [id number] [place] [address]- 3734 Jun, [facility] [place] [facility] [address] [id number] [place] [address]- 3422 Jun, [facility] [place] [facility] [address] [id number] [place] [address]- 2817 Jun, [facility] [place] [facility] [address] [id number] [place] [address]- 0738 May, [facility] [place] [facility] [address] [id number] [place] [address]- 6286 May, [facility] [place] [facility] [address] [id number] [place] [address]- 9428 May, [facility] [place] [facility] [address] [id number] [place] [address]- 4941 May, [facility] [place] [facility] [address] [id number], [place] [address]- 5317 May, [facility] [place] [facility] [address] [id number], [place] [address]- 0589 May, [facility] [place] [facility] [address] [id number] [place] [address]- 8351 May, [facility] [place] [facility] [address] [id number] [place] [address]- 2108 May, [facility] [place] [facility] [address] [id number] [place] [address]- 4796 May, [facility] [place] [facility] [address] [id number] [place] [address]- 6602 May, [facility] [place] [facility] [address] [id number] [place] [address]- 7255 Apr, [facility] [place] [facility] [address] [id number] [place] [address]- 0297 Apr, [facility] [place] [facility] [address] [id number] [place] [address]- 6277 Apr, [facility] [place] [facility] [address] [id number] [place] [address]- 7918 Apr, [facility] [place] [facility] [address] [id number] [place] [address]- 7124 Apr, [facility] [place] [facility] [address] [id number] [place] [address]- 4257 Apr, [facility] [place] [facility] [address] [id number] [place] [address]- 4779 Apr, [facility] [place] [facility] [address] [id number] [place] [address]- 5344 Apr, [facility] [place] [facility] [address] [id number] [place] [address]- 3543 Apr, [facility] [place] [facility] [address] [id number] [place] [address]- 5930 Apr, [facility] [place] [facility] [address] [id number] [place] [address]- 8655 Apr, [facility] [place] [facility] [address] [id number] [place] [address]- 7530 Apr, [facility] [place] [facility] [address] [id number] [place] [address]- 6566 Apr, [facility] [place] [facility] [address] [id number] [place] [address]- 6064 Apr, [facility] [place] [facility] [address] [id number] [place] [address]- 2877 Mar, [facility] [place] [facility] [address] [id number] [place] [address]- 4540 Mar, [facility] [place] [facility] [address] [id number] [place] [address]- 7164 Mar, [facility] [place] [facility] [address] [id number] [place] [address]- 1543 Mar, [facility] [place] [facility] [address] [id number] [place] [address]- 3582 Feb, [facility] [place] [facility] [address] [id number] [place] [address]- 2093 Feb, [facility] [place] [facility] [address] [id number] [place] [address]- 5795 Feb, [facility] [place] [facility] [address] [id number] [place] [address]- 5400 Feb, [facility] [place] [facility] [address] [id number] [place] [address]- 1045 Feb, [facility] [place] [facility] [address] [id number] [place] [address]- 7504 Feb, [facility] [place] [facility] [address] [id number] [place] [address]- 3649 Feb, [facility] [place] [facility] [address] [id number] [place] [address]- 2900 Feb, [facility] [place] [facility] [address] [id number] [place] [address]- 6143 Jan, [facility] [place] [facility] [address] [id number] [place] [address]- 2910 Jan, [facility] [place] [facility] [address] [id number] [place] [address]- 0599 Jan, [facility] [place] [facility] [address] [id number] [place] [address]- 5470 Jan, [facility] [place] [facility] [address] [id number] [place] [address]- 0493 14 Jan, 2014 [facility] [place] [facility] [address] [id number] [place] [address]- 4435 14 Jan, 2014 [facility] [place] [facility] [address] [id number] [place] [address]- 5676 11 Jan, 2014 [facility] [place] [facility] [address] [id number] [place] [address]- 2376 17 Oct, 2013 [facility] [place] [facility] [address] [id number] [place] [address]- 9857 Oct, [facility] [place] [facility] [address] [id number] [place] [address]- 2145 Sep, [facility] [place] [facility] [address] [id number] [place] [address]- 3626 Sep, [facility] [place] [facility] [address] [id number] [place] [address]- 6072 Aug, [facility] [place] [facility] [address] [id number] [place] [address]- 7476 Aug, [facility] [place] [facility] [address] [id number] [place] [address]- 5848 Aug, [facility] [place] [facility] [address] [facility] [id number] [place] [address]- 0690 Aug, [facility] [place] [facility] [address] [id number] [place] [address]- 8921 Aug, [facility] [place] [facility] [address] [id number] [place] [address]- 7953 Aug, [facility] [place] [facility] [address] [id number] [place] [address]- 0046 Aug, [facility] [place] [facility] [address] [id number] [place] [address]- 8326 17 Aug, 2013 [facility] [place] [facility] [address] [facility] [id number] [place] [address]- 6186 Jul, [facility] [address] [id number] [place] [address]- 0417 Jul, [facility] [place] [facility] [address] [id number] [place] [address]- 6093 Jun, [facility] [place] [facility] [address] [id number] [place] 3733 Jun, [facility] [place] [facility] [address] [id number] [place] [address]- 2732 Jun, [facility] [address] [id number] [place] [address]- 9467 Jun, [facility] [place] [facility] [address] [id number] [place] [address]- 6419 Jun, [facility] [place] [facility] [address] [id number] [place] [address]- 9624 Feb, [facility] [place] [facility] [address] [id number] [place] [address]- 6999 Jan, [facility] [place] [facility] [address] [id number] [place] [address]- 4083 Jan, [facility] [place] [facility] [address] [id number] [place] [address]- 7122 Dec, [facility] [place] [facility] [address] [id number] [place] [address]- 6873 Dec, [facility] [place] [facility] [address] [id number] [place] [address]- 3166 November, [facility] [place] [facility] [address] [id number] [place] [address]- 0607 Oct, [facility] [place] [facility] [address] [id number] [place] [address]- 6695 Oct, [facility] [place] [facility] [address] [id number] [place] [address]- 7779 Oct, [facility] [place] [facility] [address] [id number] [place] [address]- 4726 Sep, [facility] [address] [facility] [id number], [place] [address]- 7852 Dec, IMMUNIZATIONS No Known Immunizations SOCIAL HISTORY Never Assessed REASON FOR VISIT f/u pt reports being fidgity/anxious- states it might be rexulti. Freida PLAN OF CARE Activity Details Follow Up 2 Months, 3 Months Reason: VITAL SIGNS Height 64.5 in 2017-12-27 Weight 192.5 lbs 2017-12-27 Heart Rate 96 bpm 2017-12-27 Respiratory Rate 18 2017-12-27 BMI 32.53 kg/m2 2017-12-27 Blood pressure systolic 120 mmHg 2017-12-27 Blood pressure diastolic 70 mmHg 2017-12-27 MEDICATIONS Medication Instructions Dosage Frequency Start Date End Date Duration Status Rexulti 2 MG Orally Once a day 1 tablet 24h November, 30 day(s) Active Ibuprofen 800 MG Orally every 6 hrs 1 tablet 6h 4 days Active Zoloft 50 mg Orally Once a day 1 tablet 24h November, 30 day(s) Active Rexulti 3 MG Orally Once a day 1 tablet 24h Active Lisinopril-Hydrochlorothiazide 20-12.5 MG Orally Once a day 1 tablet 24h Active Lisinopril Not-Taking RESULTS No Results PROCEDURES No Known procedures [...]
--- OUTSIDE RECORDS SUMMARY | 2018-07-12 17:57 | XMS REPORT ---
Author Author MIGRATION, PROVIDER Organization Unknown Address Unknown Phone Unavailable Care Team Providers Care Bonding Machine Operator Name Role Phone MIGRATION, PROVIDER Unavailable Unavailable PROBLEMS Type Condition ICD9-CM Code [id number] Code Onset Dates Condition Status SNOMED Code Problem Essential (primary) hypertension I10 Active [id number] ALLERGIES No Information ENCOUNTERS Encounter Location Date Diagnosis [employer] [facility] [address] [place] [address] [id number] Aug, [facility] [address] [place] [address] [id number] Aug, Allergic sinusitis J30.9 ; Pharyngitis due to other organism J02.8 and Essential (primary) hypertension I10 [facility] [address] [place] [address] [id number] Jun, [employer] [address] [place] [address] [id number] Jun, [employer] [address] [place] [address] [id number] Mar, [facility] [address] [place] [address] [id number] Jul, IMMUNIZATIONS No Known Immunizations SOCIAL HISTORY Never Assessed REASON FOR VISIT [facility] [place] CARE VITAL SIGNS MEDICATIONS Unknown Medications RESULTS No Results PROCEDURES No Known procedures INSTRUCTIONS MEDICATIONS ADMINISTERED No Known Medications MEDICAL (GENERAL) HISTORY Type Description Date Medical History bipolar disorder Medical History hypertension Surgical History tubal ligation Hospitalization History urinary tract infection
--- OUTSIDE RECORDS SUMMARY | 2018-07-12 17:57 | XMS REPORT ---
Author Author Rosio Silver [facility] Address [address] [place] [id number] Care Team Providers Care Swim Coach Name Role Phone Surya Silvershae Unavailable PROBLEMS Type Condition ICD9-CM Code [id number] Code Onset Dates Condition Status SNOMED Code Problem Essential (primary) hypertension I10 Active [id number] ALLERGIES No Known Allergies ENCOUNTERS Encounter Location Date [facility] [address] [place] [id number] Aug, [facility] [address] [phone] Aug, Allergic sinusitis J30.9 ; Pharyngitis due to other organism J02.8 and Essential (primary) hypertension I10 [facility] [address] [place] [phone] Jun, [facility] [address] [phone] Jun, [facility] [place] [address] [place] [id number] Mar, [address] [phone] Jul, IMMUNIZATIONS No Known Immunizations SOCIAL HISTORY Never Assessed REASON FOR VISIT Blood pressure check, Allergy & sinus issues PLAN OF CARE Activity Details Follow Up prn Reason:as needed/allergy re-assessment/HTN VITAL SIGNS Temperature 99.1 degrees Fahrenheit 2017-09-07 Heart Rate 73 /min 2017-09-07 Oximetry 98 % 2017-09-07 Weight 199.8 lbs 2017-09-07 Height 64 in 2017-09-07 BMI 34.29 kg/m2 2017-09-07 Blood pressure systolic 144 mm Hg 2017-09-07 Blood pressure diastolic 89 mm Hg 2017-09-07 MEDICATIONS Medication Instructions Dosage Frequency Start Date End Date Duration Status Pseudoephedrine HCl 30 MG Orally once daily 1 tablet as needed 24h Aug, 30 days Active Lisinopril-Hydrochlorothiazide 20-12.5 MG Orally Once a day take 1 tablet by Oral route 1 time per day 24h Aug, 30 day(s) Active Rexulti 2 MG Orally Once a day 1 tablet 24h 30 day(s) Active RESULTS No Results PROCEDURES No Known procedures INSTRUCTIONS MEDICATIONS ADMINISTERED No Known Medications MEDICAL (GENERAL) HISTORY Type Description Date Medical History bipolar disorder Medical History hypertension Surgical History tubal ligation Hospitalization History urinary tract infection
--- OUTSIDE RECORDS SUMMARY | 2018-07-12 17:57 | XMS REPORT ---
Author Author PRAFUL KIRBY 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 Active 632582365 Problem Recurrent major depressive disorder, in partial remission F33.41 Active 32948899 Problem Bipolar disorder, current episode mixed, moderate F31.62 Active 393727069 ALLERGIES No Known Allergies ENCOUNTERS Encounter Location Date Diagnosis [place] [address] [address] Feb, [place] [address] [address] Dec, Essential hypertension I10 ; Onychomycosis B35.1 and Encounter to establish care Z76.89 [place] [address] [place] [id number] [place] [address] 12465- 0728 November, Bipolar disorder, current episode mixed, moderate F31.62 ; 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 [address] [place] [id number] [place] [address] [id number] Sep, Dental caries K02.9 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 [facility] [address] [address] 07[address] Sep, [facility] [address] [id number] [address] 4749 Sep, [facility] [address] [place] [id number] [place] [address] 94055- 5895 Sep, [facility] [address] [facility] [id number] [place] [address] 26892- 7061 Sep, [facility] [address] [place] [id number] [place] [address] 74499- 3248 Sep, [facility] [address] [place] [id number] [place] [address] 17429- 8698 Sep, [facility] [address] [place] [id number] [place] [address] 10473- 0685 Aug, [facility] [id number] [place] [address] 66377- 2503 Aug, [facility] [address] [place] [id number] [place] [address] 60319- 0764 Jul, [facility] [address] [address]- 8927 Jul, [facility] [id number] [address]- 4321 Jun, [facility] [address] [address]- 4154 Jun, [facility] [id number] [place] [address] 843716- 3270 Jun, [facility] [address] [id number] 13 Jun, 2016 Dental examination Z01.20 and Dental caries K02.9 [facility] [address] [address] 2050 Jun, [facility] [id number] 6446 Jun, [facility] [address] 7458 May, [facility] [address] 8[address] May, [facility] [address] [place] [id number] [place] [address] 597434- 0685 May, [facility] [id number] [place] [address] 072931- 6892 May, [facility] [address], [place] [address]- 6974 Apr, [facility] [id number] [place] [address] 84961- 0109 November, [facility] [address] [address]- 8603 Sep, Bipolar disorder, current episode mixed, moderate F31.62 [facility] [address], [place] [address]- 6605 Aug, Bipolar 1 disorder, mixed, moderate F31.62 [facility] [address], [place] [address]- 2263 Aug, [facility] [address], [place] [address]- 0767 Jul, Pharyngitis J02.9 [facility] [address], [place] [address]- 4542 Jul, Bipolar 1 disorder, mixed, moderate F31.62 [facility] [address], [place] [address]- 8098 Jun, Bipolar disorder, current episode mixed, moderate F31.62 [facility] [address] [place] [id number] [address]- 5327 May, Bipolar disorder, current episode mixed, moderate F31.62 [facility] [address] [place] [id number] [place] [address] 42521- 8150 Apr, Bipolar disorder, current episode mixed, moderate F31.62 [facility] [id number] [place] [address] 82668- 3023 Mar, Bipolar 1 disorder, mixed, moderate 296.62 [facility] [address] [place] [id number] [place] [address] 97477- 0781 Feb, Bipolar 1 disorder, mixed, moderate 296.62 [facility] [address] [place] [id number] [place] [address] 29278- 4765 Feb, [facility] [address] [place] [id number] [place] [address] 76295- 0408 Feb, Bipolar 1 disorder, mixed, moderate 296.62 [facility] [address] [place] [id number] [place] [address] 20558- 9585 Feb, Bipolar I disorder, most recent episode (or current) mixed, moderate 296.62 and Generalized anxiety disorder 300.02 [facility] [id number] [place] [address] 67935- 0746 Jan, Bipolar 1 disorder, mixed, moderate 296.62 [facility] [address], [place] [address]- 4628 Jan, [facility] [address] [place] [id number] [place] [address] 95897- 7601 Jan, [facility] [id number] [place] [address] 82699- 1982 Jan, Bipolar 1 disorder, mixed, moderate 296.62 [facility] [address], [place] [address]- 0746 Jan, [facility] [id number] [place] [address] 20611- 4767 Jan, Bipolar 1 disorder, mixed, moderate 296.62 [facility] [address], [place] [address]- 8772 Jan, Arthritis 716.90 ; Migraine 346.90 and Hypertension 401.9 [facility] [address] [place] [id number] [place] [address] 61498- 1789 Dec, [facility] [address] [place] [id number] [place] [address] 37104- 1221 Dec, Anxiety state, unspecified 300.00 and Bipolar I disorder, most recent episode (or current) mixed, moderate 296.62 [facility] [address] [place] [id number] [place] [address] 63268- 1081 Dec, Bipolar I disorder, most recent episode (or current) manic, severe, without mention of psychotic behavior 296.43 [facility] [address] [place] [id number] [place] [address] 79319- 8734 Dec, Bipolar I disorder, most recent episode (or current) mixed, moderate 296.62 and Generalized anxiety disorder 300.02 [facility] [address] [place] [id number] [place] [address] 93347- 3496 Dec, [facility] [address] [place] [id number] [place] [address] 83666- 5662 Dec, [facility] [id number] [place] [address] 57916- 5917 November, [facility] [address] [place] [id number] [place] [address] 49539- 1858 November, Bipolar I disorder, most recent episode (or current) manic, severe, without mention of psychotic behavior 296.43 [facility] [address] [place] [id number] [place] [address] 94518- 9818 Oct, [facility] [address] [place] [id number] [place] [address] 03784- 1954 Oct, [facility] [address] [place] [id number] [place] [address] 47328- 7304 16 Sep, 2014 [facility] [place] [facility] [address] [id number] [place] [address]- 0196 16 Sep, 2014 [facility] [place] [facility] [address] [id number] [place] [address]- 4256 15 Aug, 2014 [facility] [place] [facility] [address] [facility] [id number] [place] [address]- 1766 Aug, 2014 [facility] [place] [facility] [address] [id number] [place] [address]- 4260 Aug, 2014 [facility] [place] [facility] [address] [id number] [place] [address]- 9470 Aug, 2014 [facility] [place] [facility] [address] [id number] [place] [address]- 0397 Aug, [facility] [place] [facility] [address] [facility] [id number] [place] [address]- 4096 Aug, [facility] [place] [facility] [address] [facility] [id number] [place] [address]- 3923 09 Aug, 2014 [facility] [place] [facility] [address] [id number] [place] [address]- 1853 09 Aug, 2014 [facility] [place] [facility] [address] [facility] [id number] [place] [address]- 8828 Jul, [facility] [place] [facility] [address] [facility] [id number] [place] [address]- 0819 Jul, [facility] [place] [facility] [address] [id number] [place] [address]- 5393 Jul, [facility] [place] [facility] [address] [id number] [place] [address]- 6519 Jul, [facility] [place] [facility] [address] [facility] [id number] [place] [address]- 4128 Jul, [facility] [place] [facility] [address] [facility] [id number] [address]- 2195 Jul, [facility] [place] [facility] [address] [id number] [place] [address]- 7986 Jul, [facility] [place] [facility] [address] [id number] [place] [address]- 2913 Jun, [facility] [place] [facility] [address] [id number] [place] [address]- 4483 Jun, [facility] [place] [facility] [address] [id number] [place] [address]- 6969 Jun, [facility] [place] [facility] [address] [id number] [place] [address]- 9288 Jun, [facility] [place] [facility] [address] [id number] [place] [address]- 6546 Jun, [facility] [place] [facility] [address] [id number] [place] [address]- 8908 May, [facility] [place] [facility] [address] [id number] [place] [address]- 8269 May, [facility] [place] [facility] [address] [id number] [place] [address]- 2220 May, [facility] [place] [facility] [address] [id number] [place] [address]- 5328 May, [facility] [place] [facility] [address] [id number] [place] [address]- 7507 May, [facility] [place] [facility] [address] [id number] [place] [address]- 3338 May, [facility] [place] [facility] [address] [id number] [place] [address]- 1624 May, [facility] [place] [facility] [address] [id number] [place] [address]- 4742 May, [facility] [place] [facility] [address] [id number] [place] [address]- 5929 May, [facility] [place] [facility] [address] [id number] [place] [address]- 9864 May, [facility] [place] [facility] [address] [id number] [place] [address]- 5192 Apr, [facility] [place] [facility] [address] [id number] [place] [address]- 3541 Apr, [facility] [place] [facility] [address] [id number] [place] [address]- 8298 Apr, [facility] [place] [facility] [address] [id number] [place] [address]- 0408 Apr, [facility] [place] [facility] [address] [id number] [place] [address]- 8565 Apr, [facility] [place] [facility] [address] [id number] [place] [address]- 4336 Apr, [facility] [place] [facility] [address] [id number] [place] [address]- 1720 Apr, [facility] [place] [facility] [address] [id number] [place] [address]- 9907 Apr, [facility] [place] [facility] [address] [id number] [place] [address]- 2912 Apr, [facility] [place] [facility] [address] [id number] [place] [address]- 3572 Apr, [facility] [place] [facility] [address] [id number] [address]- 6959 Apr, [facility] [place] [facility] [address] [id number], [place] [address]- 2275 Apr, [facility] [place] [facility] [address] [id number] [place] [address]- 1642 Apr, [facility] [place] [facility] [address] [id number] [place] [address]- 9017 Apr, [facility] [place] [facility] [address] [id number] [place] [address]- 2106 30 Mar, 2014 [facility] [place] [facility] [address] [id number] [place] [address]- 8770 30 Mar, 2014 [facility] [place] [facility] [address] [id number] [place] [address]- 4630 Mar, [facility] [place] [facility] [address] [id number] [place] [address]- 3902 Mar, [facility] [place] [facility] [address] [id number] [place] [address]- 3270 Feb, [facility] [place] [facility] [address] [id number] [place] [address]- 0708 Feb, [facility] [place] [facility] [address] [id number] [place] [address]- 4320 Feb, [facility] [place] [facility] [address] [id number] [place] [address]- 3969 Feb, [facility] [place] [facility] [address] [id number] [place] [address]- 3126 Feb, [facility] [place] [facility] [address] [id number] [place] [address]- 3998 Feb, [facility] [place] [facility] [address] [id number] [place] [address]- 3944 Feb, [facility] [place] [facility] [address] [id number] [place] [address]- 8911 Feb, [facility] [place] [facility] [address] [id number] [place] [address]- 5190 Jan, [facility] [place] [facility] [address] [id number] [place] [address]- 0760 Jan, [facility] [place] [facility] [address] [id number] [place] [address]- 5120 Jan, [facility] [place] [facility] [address] [id number] [place] [address]- 2150 Jan, [facility] [place] [facility] [address] [id number] [place] [address]- 9377 Jan, [facility] [place] [facility] [address] [id number] [place] [address]- 1241 14 Jan, 2014 [facility] [place] [facility] [address] [id number] [place] [address]- 0045 Jan, [facility] [place] [facility] [address] [id number] [place] [address]- 2349 17 Oct, 2013 [facility] [place] [facility] [address] [id number] [place] [address]- 0340 Oct, [facility] [place] [facility] [address] [id number] [place] [address]- 2800 Sep, [facility] [place] [facility] [address] [id number] [place] [address]- 0947 Sep, [facility] [place] [facility] [address] [id number] [place] [address]- 1927 Aug, [facility] [place] [facility] [address] [id number] [place] [address]- 5254 Aug, [facility] [place] [facility] [address] [id number] [place] [address]- 7576 Aug, [facility] [place] [facility] [address] [id number] [place] [address]- 0149 Aug, [facility] [place] [facility] [address] [id number] [place] [address]- 0224 Aug, [facility] [place] [facility] [address] [id number], [place] [address]- 5482 Aug, [facility] [place] [facility] [address] [id number] [place] [address]- 1192 Aug, [facility] [place] [facility] [address] [id number] [place] [address]- 6816 Aug, [facility] [place] [facility] [address] [id number] [place] [address]- 0326 Jul, [facility] [place] [facility] [address] [id number] [place] [address]- 4790 Jul, [facility] [address] [id number] [place] [address]- 1288 Jun, [facility] [address] [id number] [place] [address] Jun, [facility] [address] [id number] [place] [address]- 1592 Jun, [facility] [address] [id number] [place] [address]- 7608 Jun, [facility] [address] [id number] [place] [address]- 4996 Jun, [facility] [address] [id number] [place] [address]- 9752 Feb, [facility] [address] [id number] [place] [address]- 3612 Jan, [facility] [address] [id number] [place] [address]- 4924 Jan, [facility] [address] [id number] [place] [address]- 4758 Dec, [facility] [address] [id number] [place] [address]- 9613 Dec, [facility] [address] [id number] [place] [address]- 9361 November, [facility] [address] [id number] [place] [address]- 9131 Oct, [facility] [address] [id number] [place] [address]- 8146 Oct, [facility] [address] [id number] [place] [address]- 8480 Oct, [facility] [address] [id number] [place] [address]- 0107 Sep, [facility] [address] [facility] [id number] [place] 8847 15 Dec, 2011 IMMUNIZATIONS No Known Immunizations SOCIAL HISTORY Never Assessed REASON FOR VISIT 1 WK TE PLAN OF CARE Activity Details Follow Up prn Reason:MARIA G VITAL SIGNS Blood pressure systolic 130 mmHg 2017-10-12 Blood pressure diastolic 78 mmHg 2017-10-12 MEDICATIONS Medication Instructions Dosage Frequency Start Date End Date Duration Status Lisinopril-Hydrochlorothiazide 20-12.5 MG Orally Once a day 1 tablet 24h Active Ibuprofen 800 MG Orally every 6 hrs 1 tablet 6h 4 days Active Rexulti Active Lamictal 25 MG Orally Twice a day 1 tablet 12h 24 Dec, 2014 30 days Not-Taking Lisinopril Active RESULTS No Results PROCEDURES Procedure Date Ordered Result Body Site EXTRAC ERUPTED TOOTH/EXPOSED ROOT October 12, 2017 INSTRUCTIONS MEDICATIONS ADMINISTERED No Known Medications MEDICAL (GENERAL) HISTORY Type Description Date Medical History Hypertension Medical History Bipolar disorder Medical History Anxiety Medical History Depression Medical History arthritis in back Medical History drug abuse Medical History Tobacco User Medical History hypoglycemia Surgical History abdominal surgery 4 wks old Surgical History genito-urinary tract surgery-LEEP 2000 Surgical History tubal ligation 02/2012 Surgical History stomach surgery 1975 Hospitalization History Hospitalization for surgery only Hospitalization History UTI
--- OUTSIDE RECORDS SUMMARY | 2018-07-12 17:57 | XMS REPORT ---
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 Active 556126396 Problem Recurrent major depressive disorder, in partial remission F33.41 Active 53140088 Problem Bipolar disorder, current episode mixed, moderate F31.62 Active 830223611 ALLERGIES No Known Allergies ENCOUNTERS Encounter Location Date Diagnosis [place] [address] [address] Feb, [place] [address] [address] Dec, Essential hypertension I10 ; Onychomycosis B35.1 and Encounter to establish care Z76.89 [place] [address] [place] [id number] [place] [address]30- 0632 November, Bipolar disorder, current episode mixed, moderate F31.62 ; 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 [address], [place] [address] Sep, [facility] [address] [id number], [place] [address] Sep, [facility] [id number] [place] [address]15- 1539 Sep, [facility] [address] [facility] [id number] [place] [address] 58794- 8984 Sep, [facility] [id number] [place] [address]01- 9345 Sep, [facility] [id number] [place] [address] 23238- 5666 Sep, [facility] [id number] [place] [address] 82839- 9288 Aug, [facility] [id number] [place] [address] 42465- 7270 Aug, [facility] [id number] [place] [address] 53239- 1850 Jul, [facility] [address]65[address] [address] 5[address] Jul, [facility] [address]65[address] [address] Jun, [facility] [address]65[address] [address] Jun, [facility] [address] [place] [address] 126496- 7377 Jun, [facility] [address] [id number] 13 Jun, 2016 Dental examination Z01.20 and Dental caries K02.9 [facility] [address], [place] [address] Jun, [facility] [address] [address] Jun, [facility] [address] [address] May, [facility] [address] [address] May, [facility] [address] [place] [id number] [place] [address] 289145- 2044 May, [facility] [address] [place] [address] 759768- 1456 May, [facility] [address], [place] [address] 9634 Apr, [facility] [address] [place] [address] 85950- 0691 November, [facility] [address], [place] [address]- 7926 Sep, Bipolar disorder, current episode mixed, moderate F31.62 [facility] [address], [place] [address] 8862 Aug, Bipolar 1 disorder, mixed, moderate F31.62 [facility] [address], [place] [address]- 7398 Aug, [facility] [address], [place] [address]- 4429 Jul, Pharyngitis J02.9 [facility] [address], [place] [address]- 7581 Jul, Bipolar 1 disorder, mixed, moderate F31.62 [facility] [address], [place] [address] Jun, Bipolar disorder, current episode mixed, moderate F31.62 [facility] [address] [place] [id number], [place] [address]- 2678 May, Bipolar disorder, current episode mixed, moderate F31.62 [facility] [address] [place] [id number] [place] [address] 58506- 6513 Apr, Bipolar disorder, current episode mixed, moderate F31.62 [facility] [address] [place] [address] 49198- 7472 Mar, Bipolar 1 disorder, mixed, moderate 296.62 [facility] [address] [place] [id number] [place] [address] 07347- 5214 Feb, Bipolar 1 disorder, mixed, moderate 296.62 [facility] [address] [place] [id number] [place] [address] 07939- 5717 Feb, [facility] [address] [place] [address] [id number] [place] [address] 93364- 0578 Feb, Bipolar 1 disorder, mixed, moderate 296.62 [facility] [address] [place] [id number] [place] [address] 98380- 5499 Feb, Bipolar I disorder, most recent episode (or current) mixed, moderate 296.62 and Generalized anxiety disorder 300.02 [facility] [address] [place] [address] 39898- 6521 Jan, Bipolar 1 disorder, mixed, moderate 296.62 [facility] [address], [place] [address]- [address] Jan, [facility] [id number] [place] [address] 90754- 2073 Jan, [facility] [address] [place] [address] 93568- 7465 Jan, Bipolar 1 disorder, mixed, moderate 296.62 [facility] [address], [place] [address]- 2640 Jan, [facility] [address] [place] [address] 52483- 8048 Jan, Bipolar 1 disorder, mixed, moderate 296.62 [facility] [address], [place] [address]- 8389 Jan, Arthritis 716.90 ; Migraine 346.[address] [facility] [address] [place] [id number] [place] [address] 73964- 4597 Dec, [facility] [address] [place] [id number] [place] [address] 44283- 0838 Dec, Anxiety state, unspecified 300.00 and Bipolar I disorder, most recent episode (or current) mixed, moderate 296.62 [facility] [address] [place] [id number] [place] [address] 73127- 0501 Dec, Bipolar I disorder, most recent episode (or current) manic, severe, without mention of psychotic behavior 296.43 [facility] [address] [place] [address] [id number] [place] [address] 67489- 6996 Dec, Bipolar I disorder, most recent episode (or current) mixed, moderate 296.62 and Generalized anxiety disorder 300.02 [facility] [address] [place] [id number] [place] [address] 90484- 1561 Dec, [facility] [id number] [place] [address] 62070- 4981 Dec, [facility] [address] [place] [address] 29783- 4420 November, [facility] [address] [place] [address] [id number] [place] [address] 28815- 8576 November, Bipolar I disorder, most recent episode (or current) manic, severe, without mention of psychotic behavior 296.43 [facility] [address] [id number] [place] [address] 22792- 4684 Oct, [facility] [id number] [place] [address] 81319- 2808 Oct, [facility] [address] [id number] [place] [address] 06796- 8632 16 Sep, 2014 [facility] [place] [facility] [address] [id number] [place] [address]- 7108 16 Sep, 2014 [facility] [place] [facility] [address] [id number] [place] [address]- 1046 15 Aug, 2014 [facility] [place] [facility] [address] [facility] [id number] [place] [address]- 0596 Aug, 2014 [facility] [place] [facility] [address] [id number] [place] [address]- 0675 Aug, 2014 [facility] [place] [facility] [address] [id number] [place] [address]- 9674 Aug, 2014 [facility] [place] [facility] [address] [id number] [place] [address]- 5132 Aug, [facility] [place] [facility] [address] [facility] [id number] [place] [address]- 1076 Aug, [facility] [place] [facility] [address] [facility] [id number] [place] [address]- 6334 09 Aug, 2014 [facility] [place] [facility] [address] [id number] [place] [address]- 0468 09 Aug, 2014 [facility] [place] [facility] [address] [facility] [id number] [place] [address]- 5227 Jul, [facility] [place] [facility] [address] [facility] [id number] [place] [address]- 7628 Jul, [facility] [place] [facility] [address] [id number] [place] [address]- 2314 Jul, [facility] [place] [facility] [address] [id number] [place] [address]- 7769 Jul, [facility] [place] [facility] [address] [facility] [id number] [place] [address]- 8917 Jul, [facility] [place] [facility] [address] [facility] [id number], [place] [address]- 9120 Jul, [facility] [place] [facility] [address] [id number] [place] [address]- 0346 Jul, [facility] [place] [facility] [address] [id number] [place] [address]- 4665 Jun, [facility] [place] [facility] [address] [id number] [place] [address]- 7557 Jun, [facility] [place] [facility] [address] [id number] [place] [address]- 3916 Jun, [facility] [place] [facility] [address] [id number] [place] [address]- 2572 Jun, [facility] [place] [facility] [address] [id number] [place] [address]- 4919 Jun, [facility] [place] [facility] [address] [id number] [place] [address]- 9349 May, [facility] [place] [facility] [address] [id number] [place] [address]- 0010 May, [facility] [place] [facility] [address] [id number] [place] [address]- 1176 May, [facility] [place] [facility] [address] [id number] [place] [address]- 4178 May, [facility] [place] [facility] [address] [id number] [place] [address]- 2008 May, [facility] [place] [facility] [address] [id number] [place] [address]- 2552 May, [facility] [place] [facility] [address] [id number] [place] [address]- 0595 May, [facility] [place] [facility] [address] [id number] [place] [address]- 8890 May, [facility] [place] [facility] [address] [id number] [place] [address]- 6009 May, [facility] [place] [facility] [address] [id number] [place] [address]- 3438 May, [facility] [place] [facility] [address] [id number] [place] [address]- 9149 Apr, [facility] [place] [facility] [address] [id number] [place] [address]- 6040 Apr, [facility] [place] [facility] [address] [id number] [place] [address]- 2064 Apr, [facility] [place] [facility] [address] [id number] [place] [address]- 2635 Apr, [facility] [place] [facility] [address] [id number] [place] [address]- 4128 Apr, [facility] [place] [facility] [address] [id number] [place] [address]- 5215 Apr, [facility] [place] [facility] [address] [id number] [place] [address]- 8381 Apr, [facility] [place] [facility] [address] [id number] [place] [address]- 5595 Apr, [facility] [place] [facility] [address] [id number] [place] [address]- 7904 Apr, [facility] [place] [facility] [address] [id number] [place] [address]- 0012 Apr, [facility] [place] [facility] [address] [id number], [place] [address]- 3127 Apr, [facility] [place] [facility] [address] [id number], [place] [address]- 1768 Apr, [facility] [place] [facility] [address] [id number] [place] [address]- 6911 Apr, [facility] [place] [facility] [address] [id number] [place] [address]- 1432 Apr, [facility] [place] [facility] [address] [id number] [place] [address]- 4824 30 Mar, 2014 [facility] [place] [facility] [address] [id number] [place] [address]- 9680 30 Mar, 2014 [facility] [place] [facility] [address] [id number] [place] [address]- 7198 Mar, [facility] [place] [facility] [address] [id number] [place] [address]- 3965 Mar, [facility] [place] [facility] [address] [id number] [place] [address]- 5320 Feb, [facility] [place] [facility] [address] [id number] [place] [address]- 6568 Feb, [facility] [place] [facility] [address] [id number] [place] [address]- 9741 Feb, [facility] [place] [facility] [address] [id number] [place] [address]- 9417 Feb, [facility] [place] [facility] [address] [id number] [place] [address]- 7503 Feb, [facility] [place] [facility] [address] [id number] [place] [address]- 3165 Feb, [facility] [place] [facility] [address] [id number] [place] [address]- 7637 Feb, [facility] [place] [facility] [address] [id number] [place] [address]- 8596 Feb, [facility] [place] [facility] [address] [id number] [place] [address]- 6923 Jan, [facility] [place] [facility] [address] [id number] [place] [address]- 0565 Jan, [facility] [place] [facility] [address] [id number] [place] [address]- 5089 Jan, [facility] [place] [facility] [address] [id number] [place] [address]- 2556 Jan, [facility] [place] [facility] [address] [id number] [place] [address]- 9439 Jan, [facility] [place] [facility] [address] [id number] [place] [address]- 0609 14 Jan, 2014 [facility] [place] [facility] [address] [id number] [place] [address]- 0477 Jan, [facility] [place] [facility] [address] [id number] [place] [address]- 5256 17 Oct, 2013 [facility] [place] [facility] [address] [id number] [place] [address]- 6538 Oct, [facility] [place] [facility] [address] [id number] [place] [address]- 0994 Sep, [facility] [place] [facility] [address] [id number] [place] [address]- 0017 Sep, [facility] [place] [facility] [address] [id number] [place] [address]- 6683 Aug, [facility] [place] [facility] [address] [id number] [place] [address]- 3761 Aug, [facility] [place] [facility] [address] [id number] [place] [address]- 4500 Aug, [facility] [place] [facility] [address] [id number] [place] [address]- 1128 Aug, [facility] [place] [facility] [address] [id number] [place] [address]- 7136 Aug, [facility] [place] [facility] [address] [id number], [place] [address]- 9637 Aug, [facility] [place] [facility] [address] [id number] [place] [address]- 3702 Aug, [facility] [place] [facility] [address] [id number] [place] [address]- 5076 Aug, [facility] [place] [facility] [address] [id number] [place] [address]- 6647 Jul, [facility] [place] [facility] [address] [id number] [place] [address]- 5298 Jul, [facility] [address] [id number] [place] [address]- 8584 Jun, [facility] [address] [id number] [place] 0712 Jun, [facility] [address] [id number] [place] [address]- 9662 Jun, [facility] [address] [id number] [place] [address]- 6814 Jun, [facility] [address] [id number] [place] [address]- 9905 Jun, [facility] [address] [id number] [place] [address]- 7790 Feb, [facility] [address] [id number] [place] [address]- 8778 Jan, [facility] [address] [id number] [place] [address]- 0174 Jan, [facility] [address] [id number] [place] [address]- 2449 Dec, [facility] [address] [id number] [place] [address]- 4941 Dec, [facility] [address] [id number] [place] [address]- 1709 November, [facility] [address] [id number] [place] [address]- 6759 Oct, [facility] [address] [id number] [place] [address]- 0171 Oct, [facility] [address] [id number] [place] [address]- 1186 Oct, [facility] [address] [id number] [place] [address]- 9002 Sep, [facility] [address] [facility] [id number] [place] [address] 15 Dec, 2011 IMMUNIZATIONS No Known Immunizations SOCIAL HISTORY Never Assessed REASON FOR VISIT ALEX PLAN OF CARE Activity Details Follow Up prn Reason:TE VITAL SIGNS Height 64.5 in 2017-10-03 Blood pressure systolic 135 mmHg 2017-10-03 Blood pressure diastolic 87 mmHg 2017-10-03 MEDICATIONS Medication Instructions Dosage Frequency Start Date End Date Duration Status Lisinopril Active Lisinopril-Hydrochlorothiazide 10-12.5 MG Orally Once a day 1 tablet 24h 21 days Active Lamictal 25 MG Orally Twice a day 1 tablet 12h 24 Dec, 2014 30 days Not-Taking Amoxicillin 500 MG Orally 3 times a day 1 capsule 8h 13 Sep, 2017 7 days Active Rexulti Active RESULTS No Results PROCEDURES Procedure Date Ordered Result Body Site LTD ORAL EVALUATION - PROBLEM FOCUS October 03, 2017 INTRAORL-PERIAPICAL 1 FILM [id number] October 03, 2017 INSTRUCTIONS MEDICATIONS ADMINISTERED No Known Medications [...]
--- OUTSIDE RECORDS SUMMARY | 2018-07-12 17:57 | XMS REPORT ---
Author Author MIGRATION, PROVIDER Organization Unknown Address Unknown Phone Unavailable Care Team Providers Care Human Resources Hr Representative Name Role Phone MIGRATION, PROVIDER Unavailable Unavailable PROBLEMS Type Condition ICD9-CM Code [id number] Code Onset Dates Condition Status SNOMED Code Problem Essential (primary) hypertension I10 Active [id number] ALLERGIES No Information ENCOUNTERS Encounter Location Date Diagnosis [facility] [address] [place] [address] [id number] Aug, [facility] [address] [place] [address] [id number] Aug, Allergic sinusitis J30.9 ; Pharyngitis due to other organism J02.8 and Essential (primary) hypertension I10 [facility] [address] [place] [address] [id number] Jun, [facility] [address] [place] [address] [id number] Jun, [facility] [address] [place] [address] [id number] Mar, [facility] [address] [place] [address] [id number] Jul, IMMUNIZATIONS No Known Immunizations SOCIAL HISTORY Never Assessed REASON FOR VISIT [facility] PLAN OF CARE VITAL SIGNS MEDICATIONS Medication Instructions Dosage Frequency Start Date End Date Duration Status Ibuprofen 800 mg take 1 tablet by Oral route 3 times per day with food as needed for pain Jul, Active Lisinopril-Hydrochlorothiazide 10-12.5 mg take 1 tablet by oral route once daily Mar, Active RESULTS No Results PROCEDURES No Known procedures INSTRUCTIONS MEDICATIONS ADMINISTERED No Known Medications MEDICAL (GENERAL) HISTORY Type Description Date Medical History bipolar disorder Medical History hypertension Surgical History tubal ligation Hospitalization History urinary tract infection
--- OUTSIDE RECORDS SUMMARY | 2018-07-12 17:57 | XMS REPORT ---
Author Author Rosio Silver [facility] Address [address] [place] [address] Care Team Providers Care Pipe Bending Machine Operator Name Role Phone Rosio Silver Unavailable PROBLEMS Type Condition ICD9-CM Code [id number] Code Onset Dates Condition Status SNOMED Code Problem Essential (primary) hypertension I10 Active [id number] ALLERGIES No Information SOCIAL HISTORY Never Assessed PLAN OF CARE VITAL SIGNS MEDICATIONS Unknown Medications RESULTS No Results PROCEDURES No Known procedures IMMUNIZATIONS No Known Immunizations MEDICAL (GENERAL) HISTORY Type Description Date Medical History bipolar disorder Medical History hypertension Surgical History tubal ligation Hospitalization History urinary tract infection
--- OUTSIDE RECORDS SUMMARY | 2018-07-12 17:58 | XMS REPORT | Continuity of Care Document ---
Author Author [facility] Address Unknown Phone Unavailable Allergies Active Description Code Type Severity Reaction Onset Reported/Identified Relationship to Patient Clinical Status Yes No Known Drug Allergies [id number] Drug Allergy Unknown N/A 11/20/2012 Medications Medication Packaging Start Date Stop Date Route Dosage Sig Rexulti 2 MG Oral Tablet UD 201607/05/2017 ORAL 2MG TAKE 1 TABLET BY MOUTH EVERY MORNING Rexulti 2 MG Oral Tablet UD 201608/04/2017 ORAL 2MG TAKE 1 TABLET BY MOUTH EVERY [id number] appointment is 07/18 at 10 am Rexulti 2 MG Oral Tablet UD 201712/01/2017 ORAL 2MG TAKE 1 TABLET BY MOUTH EVERY MORNING Rexulti 3 MG Oral Tablet UD 201711/13/2017 ORAL 3MG TAKE 1 TABLET BY MOUTH EVERY MORNING Rexulti 3 MG Oral Tablet UD 201701/04/2018 ORAL 3MG TAKE 1 TABLET BY MOUTH EVERY MORNING Problems Date Dx Coded Attending Type Code Diagnosis Diagnosed By 10/16/2012 296.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 10/16/2012 462 sore throat 10/16/2012 626.2 MENORRHAGIA 10/16/2012 724.5 BACKACHE 10/16/2012 296.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 10/16/2012 462 sore throat 10/16/2012 626.2 MENORRHAGIA 10/16/2012 724.5 BACKACHE 10/16/2012 296.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 10/16/2012 462 sore throat 10/16/2012 626.2 MENORRHAGIA 10/16/2012 724.5 BACKACHE 10/16/2012 296.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 10/16/2012 462 sore throat 10/16/2012 626.2 MENORRHAGIA 10/16/2012 724.5 BACKACHE 10/16/2012 296.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 10/16/2012 462 SORE THROAT 10/16/2012 626.2 MENORRHAGIA 10/16/2012 724.5 BACKACHE 10/16/2012 GARCIAALESSIO JUAREZ, KEVIN CABRAL 296.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 10/16/2012 RADHA JUAREZ, KEVIN CABRAL 462 SORE THROAT 10/16/2012 RADHA JUAREZ, KEVIN CABRAL 626.2 MENORRHAGIA 10/16/2012 GARCIA SERVICE DISPATCHER, KEVIN CABRAL 724.5 BACKACHE 10/16/2012 MCKENZIE DO, SUSI K 296.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 10/16/2012 MCKENZIE DO, SUSI K 462 SORE THROAT 10/16/2012 MCKENZIE DO, SUSI K 626.2 MENORRHAGIA 10/16/2012 MCKENZIE DO, SUSI K 724.5 BACKACHE 10/16/2012 RADHA JUAREZ, KEVIN CABRAL 296.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 10/16/2012 RADHA JUAERZ, KEVIN CABRAL 462 SORE THROAT 10/16/2012 RADHA JUAREZ, KEVIN CABRAL 626.2 MENORRHAGIA 10/16/2012 RADHA JUAREZ, KEVIN CABRAL 724.5 BACKACHE 10/16/2012 MICHAEL MONTANEZ, VINCENT E 296.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 10/16/2012 VINCENT QUIÑONEZ RN E 462 SORE THROAT 10/16/2012 VINCENT QUIÑONEZ RN E 626.2 MENORRHAGIA 10/16/2012 MICHAEL MONTANEZ, VNICENT E 724.5 BACKACHE 10/16/2012 MICHAEL MONTANEZ, VINCENT E 296.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 10/16/2012 RONNI QUIÑONEZ RNISTA E 462 SORE THROAT 10/16/2012 MICHAEL MONTANEZ, VINCENT E 626.2 MENORRHAGIA 10/16/2012 MICHAEL MONTANEZ, VINCENT E 724.5 BACKACHE 10/16/2012 MICHAEL MONTANEZ, VINCENT E 296.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 10/16/2012 VINCENT QUIÑONEZ RN E 462 SORE THROAT 10/16/2012 VINCENT QUIÑONEZ RN E 626.2 MENORRHAGIA 10/16/2012 MICHAEL MONTANEZ, VINCENT E 724.5 BACKACHE 10/16/2012 MICHAEL MONTANEZ, VINCENT E 296.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 10/16/2012 RONNI QUIÑONEZ RNISTA E 462 SORE THROAT 10/16/2012 MICHAEL MONTANEZ, VINCENT E 626.2 MENORRHAGIA 10/16/2012 MICHAEL MONTANEZ, VINCENT E 724.5 BACKACHE 10/16/2012 MICHAEL MONTANEZ, VINCENT E 296.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 10/16/2012 MICHAEL MONTANEZ, VINCENT E 462 SORE THROAT 10/16/2012 MICHAEL MONTANEZ, VINCENT E 626.2 MENORRHAGIA 10/16/2012 MICHAEL MONTANEZ, VINCENT E 724.5 BACKACHE 10/16/2012 MICHAEL MONTANEZ, VINCENT E 296.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 10/16/2012 MICHAEL MONTANEZ, VINCENT E 462 SORE THROAT 10/16/2012 MICHAEL MONTANEZ, VINCENT E 626.2 MENORRHAGIA 10/16/2012 MICHAEL MONTANEZ, VINCENT E 724.5 BACKACHE 10/16/2012 MICHAEL MONTANEZ, VINCENT E 296.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 10/16/2012 MICHAEL MONTANEZ, VINCENT E 462 SORE THROAT 10/16/2012 MICHAEL MONTANEZ, VINCENT E 626.2 MENORRHAGIA 10/16/2012 MICHAEL MONTANEZ, VINCENT E 724.5 BACKACHE 10/16/2012 STEPHANIE ECHAVARRIA M 296.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 10/16/2012 STEPHANIE ECHAVARRIA M 462 SORE THROAT 10/16/2012 STEPHANIE ECHAVARRIA M 626.2 MENORRHAGIA 10/16/2012 STEPHANIE ECHAVARRIA M 724.5 BACKACHE 10/16/2012 MICHAEL MONTANEZ, VINCENT E 296.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 10/16/2012 MICHAEL MONTANEZ, VINCENT E 462 SORE THROAT 10/16/2012 MICHAEL MONTANEZ, VINCENT E 626.2 MENORRHAGIA 10/16/2012 MICHAEL MONTANEZ, VINCENT E 724.5 BACKACHE 10/16/2012 STEPHANIE ECHAVARRIA M 296.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 10/16/2012 STEPHANIE ECHAVARRIA M 462 SORE THROAT 10/16/2012 STEPHANIE ECHAVARRIA M 626.2 MENORRHAGIA 10/16/2012 STEPHANIE ECHAVARRIA M 724.5 BACKACHE 10/16/2012 STEPHANIE ECHAVARRIA M 296.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 10/16/2012 STEPHANIE ECHAVARRIA M 462 SORE THROAT 10/16/2012 STEPHANIE ECHAVARRIA M 626.2 MENORRHAGIA 10/16/2012 SONIDO XAVIER STEPHANIE Fredrick 724.5 BACKACHE 11/15/2012 338.29 OTHER CHRONIC PAIN 11/15/2012 V58.69 LONG-TERM ( CURRENT) USE OF OTHER MEDICATIONS 11/15/2012 338.29 OTHER CHRONIC PAIN 11/15/2012 V58.69 LONG-TERM ( CURRENT) USE OF OTHER MEDICATIONS 11/15/2012 338.29 OTHER CHRONIC PAIN 11/15/2012 V58.69 LONG-TERM ( CURRENT) USE OF OTHER MEDICATIONS 11/15/2012 RADHA JUAREZ KEVIN MISHA 338.29 OTHER CHRONIC PAIN 11/15/2012 RADHA JUAREZ KEVIN MISHA V58.69 LONG-TERM (CURRENT) USE OF OTHER MEDICATIONS 11/15/2012 MCKENZIE SUSI MICHELLE 338.29 OTHER CHRONIC PAIN 11/15/2012 MCKENZIE DOSUSI K V58.69 LONG-TERM (CURRENT) USE OF OTHER MEDICATIONS 11/15/2012 RADHA JUAREZ KEVIN MISHA 338.29 OTHER CHRONIC PAIN 11/15/2012 RADHA JUAREZ KEVIN MISHA V58.69 LONG-TERM (CURRENT) USE OF OTHER MEDICATIONS 11/15/2012 VINCENT QUIÑONEZ RN 338.29 OTHER CHRONIC PAIN 11/15/2012 VINCENT QUIÑONEZ RN V58.69 LONG-TERM (CURRENT) USE OF OTHER MEDICATIONS 11/15/2012 VINCENT QUIÑONEZ RN 338.29 OTHER CHRONIC PAIN 11/15/2012 VINCENT QUIÑONEZ RN V58.69 LONG-TERM (CURRENT) USE OF OTHER MEDICATIONS 11/15/2012 VINCENT QUIÑONEZ RN 338.29 OTHER CHRONIC PAIN 11/15/2012 VINCENT QUIÑONEZ RN V58.69 LONG-TERM (CURRENT) USE OF OTHER MEDICATIONS 11/15/2012 VINCENT QUIÑONEZ RN 338.29 OTHER CHRONIC PAIN 11/15/2012 VINCENT QUIÑONEZ RN V58.69 LONG-TERM (CURRENT) USE OF OTHER MEDICATIONS 11/15/2012 VINCENT QUIÑONEZ RN 338.29 OTHER CHRONIC PAIN 11/15/2012 VINCENT QUIÑONEZ RN V58.69 LONG-TERM (CURRENT) USE OF OTHER MEDICATIONS 11/15/2012 VINCENT QUIÑONEZ RN 338.29 OTHER CHRONIC PAIN 11/15/2012 VINCENT QUIÑONEZ RN V58.69 LONG-TERM (CURRENT) USE OF OTHER MEDICATIONS 11/15/2012 VINCENT QUIÑONEZ RN 338.29 OTHER CHRONIC PAIN 11/15/2012 VINCENT QUIÑONEZ RN V58.69 LONG-TERM (CURRENT) USE OF OTHER MEDICATIONS 11/15/2012 SONIDO CHAIR CAR ATTENDANT STEPHANIE M 338.29 OTHER CHRONIC PAIN 11/15/2012 STEPHANIE ECHAVARRIA M V58.69 LONG-TERM (CURRENT) USE OF OTHER MEDICATIONS 11/15/2012 VINCENT QUIÑONEZ RN 338.29 OTHER CHRONIC PAIN 11/15/2012 VINCENT QUIÑONEZ RN V58.69 LONG-TERM (CURRENT) USE OF OTHER MEDICATIONS 11/15/2012 SONIDO MORENITA STEPHANIE M 338.29 OTHER CHRONIC PAIN 11/15/2012 SONIDO RONNI XAVIERISTIN M V58.69 LONG-TERM (CURRENT) USE OF OTHER MEDICATIONS 11/15/2012 SONIDO CHAIR CAR ATTENDANT STEPHANIE M 338.29 OTHER CHRONIC PAIN 11/15/2012 STEPHANIE ECHAVARRIA M V58.69 LONG-TERM (CURRENT) USE OF OTHER MEDICATIONS 02/13/2013 626.4 IRREGULAR MENSTRUAL CYCLE 02/13/2013 V65.42 COUNSELING - SMOKING CESSATION 02/13/2013 V76.10 BREAST CANCER SCREENING 02/13/2013 626.4 IRREGULAR MENSTRUAL CYCLE 02/13/2013 V65.42 COUNSELING - SMOKING CESSATION 02/13/2013 V76.10 BREAST CANCER SCREENING 02/13/2013 KEVIN GARCIA APRN 626.4 IRREGULAR MENSTRUAL CYCLE 02/13/2013 KEVIN GARCIA APRN V65.42 COUNSELING - SMOKING CESSATION 02/13/2013 KEVIN GARCIA APRN V76.10 BREAST CANCER SCREENING 02/13/2013 SUSI MCKENZIE DO 626.4 IRREGULAR MENSTRUAL CYCLE 02/13/2013 HU MCKENZIE DOA K V65.42 COUNSELING - SMOKING CESSATION 02/13/2013 HU MCKENZIE DOA K V76.10 BREAST CANCER SCREENING 02/13/2013 KEVIN GARCIA APRN 626.4 IRREGULAR MENSTRUAL CYCLE 02/13/2013 EKVIN GARCIA APRN V65.42 COUNSELING - SMOKING CESSATION 02/13/2013 KEVIN GARCIA APRN V76.10 BREAST CANCER SCREENING 02/13/2013 VINCENT QUIÑONEZ RN 626.4 IRREGULAR MENSTRUAL CYCLE 02/13/2013 QUIÑONEZ RN, VINCENT E V65.42 COUNSELING - SMOKING CESSATION 02/13/2013 VINCENT QUIÑONEZ RN E V76.10 BREAST CANCER SCREENING 02/13/2013 VINCENT QUIÑONEZ RN E 626.4 IRREGULAR MENSTRUAL CYCLE 02/13/2013 VINCENT QUIÑONEZ RN E V65.42 COUNSELING - SMOKING CESSATION 02/13/2013 VINCENT QUIÑONEZ RN E V76.10 BREAST CANCER SCREENING 02/13/2013 VINCENT QUIÑONEZ RN E 626.4 IRREGULAR MENSTRUAL CYCLE 02/13/2013 VINCENT QUIÑONEZ RN E V65.42 COUNSELING - SMOKING CESSATION 02/13/2013 VINCENT QUIÑONEZ RN E V76.10 BREAST CANCER SCREENING 02/13/2013 VINCENT QUIÑONEZ RN E 626.4 IRREGULAR MENSTRUAL CYCLE 02/13/2013 VINCENT QUIÑONEZ RN V65.42 COUNSELING - SMOKING CESSATION 02/13/2013 VINCENT QUIÑONEZ RN E V76.10 BREAST CANCER SCREENING 02/13/2013 VINCENT QUIÑONEZ RN E 626.4 IRREGULAR MENSTRUAL CYCLE 02/13/2013 VINCENT QUIÑONEZ RN V65.42 COUNSELING - SMOKING CESSATION 02/13/2013 VINCENT QUIÑONEZ RN E V76.10 BREAST CANCER SCREENING 02/13/2013 VINCENT QUIÑONEZ RN E 626.4 IRREGULAR MENSTRUAL CYCLE 02/13/2013 VINCENT QUIÑONEZ RN E V65.42 COUNSELING - SMOKING CESSATION 02/13/2013 VINCENT QUIÑONEZ RN E V76.10 BREAST CANCER SCREENING 02/13/2013 VINCENT QUIÑONEZ RN E 626.4 IRREGULAR MENSTRUAL CYCLE 02/13/2013 VINCENT QUIÑONEZ RN E V65.42 COUNSELING - SMOKING CESSATION 02/13/2013 VINCENT QUIÑONEZ RN E V76.10 BREAST CANCER SCREENING 02/13/2013 STEPHANIE ECHAVARRIA 626.4 IRREGULAR MENSTRUAL CYCLE 02/13/2013 STEPHANIE ECHAVARRIA V65.42 COUNSELING - SMOKING CESSATION 02/13/2013 STEPHANIE ECHAVARRIA V76.10 BREAST CANCER SCREENING 02/13/2013 VINCENT QUIÑONEZ RN E 626.4 IRREGULAR MENSTRUAL CYCLE 02/13/2013 VINCENT QUIÑONEZ RN E V65.42 COUNSELING - SMOKING CESSATION 02/13/2013 VINCENT QUIÑONEZ RN E V76.10 BREAST CANCER SCREENING 02/13/2013 STEPHANIE ECHAVARRIA 626.4 IRREGULAR MENSTRUAL CYCLE 02/13/2013 STEPHANIE ECHAVARRIA V65.42 COUNSELING - SMOKING CESSATION 02/13/2013 STEPHANIE ECHAVARRIA V76.10 BREAST CANCER SCREENING 02/13/2013 STEPHANIE ECHAVARRIA 626.4 IRREGULAR MENSTRUAL CYCLE 02/13/2013 STEPHANIE ECHAVARRIA V65.42 COUNSELING - SMOKING CESSATION 02/13/2013 STEPHANIE ECHAVARRIA V76.10 BREAST CANCER SCREENING 03/12/2013 724.2 LUMBAGO 03/12/2013 RADHA JUAREZ KEVIN MISHA 724.2 LUMBAGO 03/12/2013 SUSI MCKENZIE DO 724.2 LUMBAGO 03/12/2013 KEVIN GARCIA APRN 724.2 LUMBAGO 03/12/2013 MICHAEL MONTANEZ, VINCENT E 724.2 LUMBAGO 03/12/2013 MICHAEL MONTANEZ, VINCENT E 724.2 LUMBAGO 03/12/2013 MICHAEL MONTANEZ, VINCENT E 724.2 LUMBAGO 03/12/2013 MICHAEL MONTANEZ, VINCENT E 724.2 LUMBAGO 03/12/2013 MICHAEL MONTANEZ, VINCENT E 724.2 LUMBAGO 03/12/2013 MICHAEL MONTANEZ, VINCENT E 724.2 LUMBAGO 03/12/2013 MICHAEL MONTANEZ, VINCENT E 724.2 LUMBAGO 03/12/2013 STEPHANIE ECHAVARRIA M 724.2 LUMBAGO 03/12/2013 MICHAEL MONTANEZ, VINCENT E 724.2 LUMBAGO 03/12/2013 STEPHANIE ECHAVARRIA M 724.2 LUMBAGO 03/12/2013 STEPHANIE ECHAVARRIA 724.2 LUMBAGO 07/06/2013 RADHA JUAREZ KEVIN MISHA 296.80 MO BIPOLAR NOS 07/06/2013 RADHA JUAREZ KEVIN MISHA 300.00 AN ANXIETY UNSPEC 07/06/2013 SUSI MCKENZIE DO K 296.80 MO BIPOLAR NOS 07/06/2013 SUSI MCKENZIE DO K 300.00 AN ANXIETY UNSPEC 07/06/2013 RADHA JUAREZ KEVIN MISHA 296.80 MO BIPOLAR NOS 07/06/2013 RADHA JUAREZ KEVIN MISHA 300.00 AN ANXIETY UNSPEC 07/06/2013 MICHAEL MONTANEZ, VINCENT E 296.80 MO BIPOLAR NOS 07/06/2013 MICHAEL MONTANEZ, VINCENT E 300.00 AN ANXIETY UNSPEC 07/06/2013 IMCHAEL RN, VINCENT E 296.80 MO BIPOLAR NOS 07/06/2013 MICHAEL MONTANEZ, VINCENT E 300.00 AN ANXIETY UNSPEC 07/06/2013 MICHAEL RN, VINCENT E 296.80 MO BIPOLAR NOS 07/06/2013 MICHAEL RN, VINCENT E 300.00 AN ANXIETY UNSPEC 07/06/2013 MICHAEL MONTANEZ, VINCENT E 296.80 MO BIPOLAR NOS 07/06/2013 MICHAEL MONTANEZ, VINCENT E 300.00 AN ANXIETY UNSPEC 07/06/2013 MICHAEL RN, VINCENT E 296.80 MO BIPOLAR NOS 07/06/2013 MICHAEL RN, VINCENT E 300.00 AN ANXIETY UNSPEC 07/06/2013 MICHAEL MONTANEZ, VINCENT E 296.80 MO BIPOLAR NOS 07/06/2013 MICHAEL MONTANEZ, VINCENT E 300.00 AN ANXIETY UNSPEC 07/06/2013 MICHAEL MONTANEZ, VINCENT E 296.80 MO BIPOLAR NOS 07/06/2013 MICHAEL MONTANEZ, VINCENT E 300.00 AN ANXIETY UNSPEC 07/06/2013 STEPHANIE ECHAVARRIA M 296.80 MO BIPOLAR NOS 07/06/2013 STEPHANIE ECHAVARRIA M 300.00 AN ANXIETY UNSPEC 07/06/2013 MICHAEL MONTANEZ, VINCENT E 296.80 MO BIPOLAR NOS 07/06/2013 MICHAEL MONTANEZ, VINCENT E 300.00 AN ANXIETY UNSPEC 07/06/2013 SONIDO XAVIER, STEPHANIE M 296.80 MO BIPOLAR NOS 07/06/2013 SONIDO XAVIER, STEPHANIE M 300.00 AN ANXIETY UNSPEC 07/06/2013 STEPHANIE ECHAVARRIA M 296.80 MO BIPOLAR NOS 07/06/2013 STEPHANIE ECHAVARRIA M 300.00 AN ANXIETY UNSPEC 07/29/2013 ARCHIE DEL RIO APRN Ot 490 BRONCHITIS NOS 07/29/2013 ARCHIE DEL RIO APRN Ot 786.2 COUGH 09/19/2013 SUSI MCKENZIE DO K 461.9 SINUSITIS ACUTE 09/19/2013 SUSI MCKENZIE DO K 465.9 UPPER RESPIRATORY INFECTION 09/19/2013 SUSI MCKENZIE DO K 796.2 ELEVATED BLOOD PRESSURE READING WITHOUT DIAGNOSIS OF HYPERTENSION 09/19/2013 KEVIN GARCIA APRN 461.9 SINUSITIS ACUTE 09/19/2013 KEVIN GARCIA APRN 465.9 UPPER RESPIRATORY INFECTION 09/19/2013 KEVIN GARCIA APRN 796.2 ELEVATED BLOOD PRESSURE READING WITHOUT DIAGNOSIS OF HYPERTENSION 09/19/2013 MICHAEL RN, VINCENT E 461.9 SINUSITIS ACUTE 09/19/2013 MICHAEL RNVINCENT E 465.9 UPPER RESPIRATORY INFECTION 09/19/2013 MICHAEL RN, VINCENT E 796.2 ELEVATED BLOOD PRESSURE READING WITHOUT DIAGNOSIS OF HYPERTENSION 09/19/2013 MICHAEL RN, VINCENT E 461.9 SINUSITIS ACUTE 09/19/2013 MICHAEL MONTANEZ, VINCENT E 465.9 UPPER RESPIRATORY INFECTION 09/19/2013 MICHAEL RN, VINCENT E 796.2 ELEVATED BLOOD PRESSURE READING WITHOUT DIAGNOSIS OF HYPERTENSION 09/19/2013 MICHAEL RN, VINCENT E 461.9 SINUSITIS ACUTE 09/19/2013 RONNI QUIÑONEZ RNISTA E 465.9 UPPER RESPIRATORY INFECTION 09/19/2013 RONNI QUIÑONEZ RNISTA E 796.2 ELEVATED BLOOD PRESSURE READING WITHOUT DIAGNOSIS OF HYPERTENSION 09/19/2013 MICHAEL MONTANEZ, VINCENT E 461.9 SINUSITIS ACUTE 09/19/2013 RONNI QUIÑONEZ RNISTA E 465.9 UPPER RESPIRATORY INFECTION 09/19/2013 RONNI QUIÑONEZ RNISTA E 796.2 ELEVATED BLOOD PRESSURE READING WITHOUT DIAGNOSIS OF HYPERTENSION 09/19/2013 MICHAEL RN, VINCENT E 461.9 SINUSITIS ACUTE 09/19/2013 MICHAEL MONTANEZ, VINCENT E 465.9 UPPER RESPIRATORY INFECTION 09/19/2013 MICHAEL MONTANEZ, VINCENT E 796.2 ELEVATED BLOOD PRESSURE READING WITHOUT DIAGNOSIS OF HYPERTENSION 09/19/2013 MICHAEL RN, VINCENT E 461.9 SINUSITIS ACUTE 09/19/2013 RONNI QUIÑONEZ RNISTA E 465.9 UPPER RESPIRATORY INFECTION 09/19/2013 RONNI QUIÑONEZ RNISTA E 796.2 ELEVATED BLOOD PRESSURE READING WITHOUT DIAGNOSIS OF HYPERTENSION 09/19/2013 MICHAEL RNRONNIVINCENT E 461.9 SINUSITIS ACUTE 09/19/2013 MICHAEL RNRONNIVINCENT E 465.9 UPPER RESPIRATORY INFECTION 09/19/2013 MICHAEL RN, VINCENT E 796.2 ELEVATED BLOOD PRESSURE READING WITHOUT DIAGNOSIS OF HYPERTENSION 09/19/2013 STEPHANIE ECHAVARRIA M 461.9 SINUSITIS ACUTE 09/19/2013 STEPHANIE ECHAVARRIA M 465.9 UPPER RESPIRATORY INFECTION 09/19/2013 STEPHANIE ECHAVARRIA M 796.2 ELEVATED BLOOD PRESSURE READING WITHOUT DIAGNOSIS OF HYPERTENSION 09/19/2013 VINCENT QUIÑONEZ RN E 461.9 SINUSITIS ACUTE 09/19/2013 VINCENT QUIÑONEZ RN 465.9 UPPER RESPIRATORY INFECTION 09/19/2013 MICHAEL MONTANEZ, VINCENT Bowers 796.2 ELEVATED BLOOD PRESSURE READING WITHOUT DIAGNOSIS OF HYPERTENSION 09/19/2013 SONIDO RONNI XAVIERISTIN M 461.9 SINUSITIS ACUTE 09/19/2013 RONNI ECHAVARRIAISTIN M 465.9 UPPER RESPIRATORY INFECTION 09/19/2013 RONNI ECHAVARRIAISTIN M 796.2 ELEVATED BLOOD PRESSURE READING WITHOUT DIAGNOSIS OF HYPERTENSION 09/19/2013 SONIDO CNSRONNISTEPHANIE M 461.9 SINUSITIS ACUTE 09/19/2013 SONIDO RONNI XAVIERISTIN M 465.9 UPPER RESPIRATORY INFECTION 09/19/2013 SONIDO RONNI XAVIERISTIN M 796.2 ELEVATED BLOOD PRESSURE READING WITHOUT DIAGNOSIS OF HYPERTENSION 02/20/2014 KEVIN GARCIA APRN 296.32 MO DEPRESSIVE RECURRENT MODERATE 02/20/2014 KEVIN GARCIA APRN 300.02 AN GEN ANXIETY 02/20/2014 VINCENT QUIÑONEZ RN 296.32 MO DEPRESSIVE RECURRENT MODERATE 02/20/2014 VINCENT QUIÑONEZ RN 300.02 AN GEN ANXIETY 02/20/2014 VINCENT QUIÑONEZ RN 296.32 MO DEPRESSIVE RECURRENT MODERATE 02/20/2014 VINCENT QUIÑONEZ RN 300.02 AN GEN ANXIETY 02/20/2014 VINCENT QUIÑONEZ RN 296.32 MO DEPRESSIVE RECURRENT MODERATE 02/20/2014 VINCENT QUIÑONEZ RN 300.02 AN GEN ANXIETY 02/20/2014 VINCENT QUIÑONEZ RN 296.32 MO DEPRESSIVE RECURRENT MODERATE 02/20/2014 VINCENT QUIÑONEZ RN 300.02 AN GEN ANXIETY 02/20/2014 VINCENT QUIÑONEZ RN 296.32 MO DEPRESSIVE RECURRENT MODERATE 02/20/2014 VINCENT QUIÑONEZ RN 300.02 AN GEN ANXIETY 02/20/2014 VINCENT QUIÑONEZ RN 296.32 MO DEPRESSIVE RECURRENT MODERATE 02/20/2014 VINCENT QUIÑONEZ RN 300.02 AN GEN ANXIETY 02/20/2014 VINCENT QUIÑONEZ RN 296.32 MO DEPRESSIVE RECURRENT MODERATE 02/20/2014 VINCENT QUIÑONEZ RN 300.02 AN GEN ANXIETY 02/20/2014 STEPHANIE ECHAVARRIA M 296.32 MO DEPRESSIVE RECURRENT MODERATE 02/20/2014 STEPHANIE ECHAVARRIA M 300.02 AN GEN ANXIETY 02/20/2014 VINCENT QUIÑONEZ RN 296.32 MO DEPRESSIVE RECURRENT MODERATE 02/20/2014 QUIÑONEZ RN, VINCENT E 300.02 AN GEN ANXIETY 02/20/2014 STEPHANIE ECHAVARRIA M 296.32 MO DEPRESSIVE RECURRENT MODERATE 02/20/2014 STEPHANIE ECHAVARRIA M 300.02 AN GEN ANXIETY 02/20/2014 STEPHANIE ECHAVARRIA M 296.32 MO DEPRESSIVE RECURRENT MODERATE 02/20/2014 STEPHANIE ECHAVARRIA M 300.02 AN GEN ANXIETY 03/19/2014 VINCENT QUIÑONEZ RN E 296.43 BIPOLAR I DISORDER MOST RECENT EPISODE (OR CURRENT) MANIC SEVERE WITHOUT MENTION OF PSYCHOTIC BEHAVIOR 03/19/2014 VINCENT QUIÑONEZ RN E 296.43 BIPOLAR I DISORDER MOST RECENT EPISODE (OR CURRENT) MANIC SEVERE WITHOUT MENTION OF PSYCHOTIC BEHAVIOR 03/19/2014 VINCENT QUIÑONEZ RN E 296.43 BIPOLAR I DISORDER MOST RECENT EPISODE (OR CURRENT) MANIC SEVERE WITHOUT MENTION OF PSYCHOTIC BEHAVIOR 03/19/2014 VINCENT QUIÑONEZ RN E 296.43 BIPOLAR I DISORDER MOST RECENT EPISODE (OR CURRENT) MANIC SEVERE WITHOUT MENTION OF PSYCHOTIC BEHAVIOR 03/19/2014 VINCENT QUIÑONEZ RN E 296.43 BIPOLAR I DISORDER MOST RECENT EPISODE (OR CURRENT) MANIC SEVERE WITHOUT MENTION OF PSYCHOTIC BEHAVIOR 03/19/2014 VINCENT QUIÑONEZ RN E 296.43 BIPOLAR I DISORDER MOST RECENT EPISODE (OR CURRENT) MANIC SEVERE WITHOUT MENTION OF PSYCHOTIC BEHAVIOR 03/19/2014 STEPHNAIE ECHAVARRIA M 296.43 BIPOLAR I DISORDER MOST RECENT EPISODE (OR CURRENT) MANIC SEVERE WITHOUT MENTION OF PSYCHOTIC BEHAVIOR 03/19/2014 VINCENT QUIÑONEZ RN E 296.43 BIPOLAR I DISORDER MOST RECENT EPISODE (OR CURRENT) MANIC SEVERE WITHOUT MENTION OF PSYCHOTIC BEHAVIOR 03/19/2014 STEPHANIE ECHAVARRIA M 296.43 BIPOLAR I DISORDER MOST RECENT EPISODE (OR CURRENT) MANIC SEVERE WITHOUT MENTION OF PSYCHOTIC BEHAVIOR 03/19/2014 STEPHANIE ECHAVARRIA M 296.43 BIPOLAR I DISORDER MOST RECENT EPISODE (OR CURRENT) MANIC SEVERE WITHOUT MENTION OF PSYCHOTIC BEHAVIOR 06/18/2014 VINCENT QUIÑONEZ RN E 311 MO DEPRESS NOS 06/18/2014 VINCENT QUIÑONEZ RN E 311 MO DEPRESS NOS 06/18/2014 STEPHANIE ECHAVARRIA M 311 MO DEPRESS NOS 06/18/2014 VINCNET QUIÑONEZ RN E 311 MO DEPRESS NOS 06/18/2014 STEPHANIE ECHAVARRIA M 311 MO DEPRESS NOS 06/18/2014 STEPHANIE ECHAVARRIA M 311 MO DEPRESS NOS 09/10/2014 SONIDO XAVIER STEPHANIE M 296.62 MO BIPOLAR I MIXED MODERATE 09/10/2014 STEPHANIE ECHAVARRIA M 296.62 MO BIPOLAR I MIXED MODERATE 08/24/2016 MICHAEL RAMIREZ F17.211 NICOTINE DEPENDENCE, CIGARETTES, IN REMISSION 08/24/2016 MICHAEL RAMIREZ 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 08/24/2016 MICHAEL RAMIREZ Z00.01 ENCOUNTER FOR GENERAL ADULT MEDICAL EXAM W ABNORMAL FINDINGS 08/24/2016 MICHAEL RAMIREZ Z71.51 DRUG ABUSE COUNSELING AND SURVEILLANCE OF DRUG ABUSER 04/26/2017 MICHAEL RAMIREZ I10 ESSENTIAL (PRIMARY) HYPERTENSION 04/26/2017 MICHAEL RAMIREZ Z13.84 ENCOUNTER FOR SCREENING FOR DENTAL DISORDERS 05/09/2017 F 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, unspecified with unspecified alcohol-induced disorder Quiñonez, [employer] 05/09/2017 F F15.20 Other stimulant dependence, uncomplicated Quiñonez, [employer] 05/09/2017 F F17.200 Nicotine dependence, unspecified, uncomplicated Quiñonez, [employer] 05/09/2017 F F31.9 Bipolar disorder, unspecified Quiñonez, [employer] 05/09/2017 F Z71.9 Counseling, unspecified Quiñonez, [employer] 05/11/2017 F 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, unspecified with unspecified alcohol-induced disorder Quiñonez, [employer] 05/11/2017 F F15.20 Other stimulant dependence, uncomplicated Quiñonez, [employer] 05/11/2017 F F31.9 Bipolar disorder, unspecified Quiñonez, [employer] 05/30/2017 F 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, unspecified with unspecified alcohol-induced disorder Merlin Michele S 05/30/2017 F F15.20 Other stimulant dependence, uncomplicated [place], Michele S 05/30/2017 F F17.200 Nicotine dependence, unspecified, uncomplicated [place], Michele S 05/30/2017 F F31.9 Bipolar disorder, unspecified [place], Michele S 05/30/2017 F Z71.9 Counseling, unspecified [place], Michele S 05/30/2017 F 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, unspecified with unspecified alcohol-induced disorder Yared Boss 05/30/2017 F F15.20 Other stimulant dependence, uncomplicated Karyn, Yared 05/30/2017 F F31.9 Bipolar disorder, unspecified Karyn, Yared 06/07/2017 F 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, unspecified with unspecified alcohol-induced disorder Psy, Batch 06/07/2017 F F15.20 Other stimulant dependence, uncomplicated Psy, Batch 06/07/2017 F F31.9 Bipolar disorder, unspecified Psy, Batch 08/02/2017 F 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, unspecified with unspecified alcohol-induced disorder Melugin, Staci R 08/02/2017 F F15.20 Other stimulant dependence, uncomplicated Melugin, Staci R 08/02/2017 F F17.200 Nicotine dependence, unspecified, uncomplicated Melugin, Staci R 08/02/2017 F F31.9 Bipolar disorder, unspecified Melugin, Staci R 08/02/2017 F Z71.9 Counseling, unspecified Melugin, Staci R 08/02/2017 F 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, unspecified with unspecified alcohol-induced disorder Chely Rees A 08/02/2017 F F15.20 Other stimulant dependence, uncomplicated Cabrera, Chely A 08/02/2017 F F31.9 Bipolar disorder, unspecified Cabrera, Chely A 08/02/2017 F 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, unspecified with unspecified alcohol-induced disorder Psy, Batch 08/02/2017 F F15.20 Other stimulant dependence, uncomplicated Psy, Batch 08/02/2017 F F31.9 Bipolar disorder, unspecified Psy, Batch 09/13/2017 F 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, unspecified with unspecified alcohol-induced disorder Cabrera, Chely A 09/13/2017 F F15.20 Other stimulant dependence, uncomplicated Cabrera, Chely A 09/13/2017 F F31.9 Bipolar disorder, unspecified Cabrera, Chely A 09/13/2017 F 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, unspecified with unspecified alcohol-induced disorder Psy, Batch 09/13/2017 F F15.20 Other stimulant dependence, uncomplicated Psy, Batch 09/13/2017 F F31.9 Bipolar disorder, unspecified Psy, Batch Procedures Code Description [place] [id number] STREP A (IN-HOUSE) 10/16/2012 [id number] URINE DRUG SCREEN (IN-HOUSE ) 11/15/2012 PHYSICAL PHYSICAL THERAPY, [facility]IA [facility] 03/12/2013 S0280 COMPREHENSIVE CARE MANAGEMENT 03/26/2014 S0281 CARE COORDINATION 04/11/2014 S0280 HEALTH PROMOTION 04/13/2014 S0281 CARE COORDINATION 04/29/2014 S0280 HEALTH PROMOTION 05/27/2014 S0281 CARE COORDINATION 05/27/2014 S0280 HEALTH PROMOTION 07/10/2014 S0281 CARE COORDINATION 07/10/2014 S0280 PATIENT AND FAMILY SUPPORT 08/14/2014 S0281 CARE COORDINATION 10/31/2014 D1206 TOPICAL FLUORIDE VARNISH 04/26/2017 30857 Admission Intake Romario Quiñonez 05/09/2017 57295 Admission Intake Romario Quiñonez 05/09/2017 29371 OFFICE/OUTPATIENT VISIT, Michele Culp 05/30/2017 [id number] OFFICE/OUTPATIENT VISIT, Michele Culp 05/30/2017 54451 OFFICE/OUTPATIENT VISIT, Staci Infante 08/02/2017 37621 OFFICE/OUTPATIENT VISIT, Staci Infante 08/02/2017 V2020 Vision svcs frames purchases 08/31/2017 V2103 Spherocylindr 4.00d/12- 2.00d 08/31/2017 V2782 Lens, 1.54-1.65 p/1.60- 1.79g 08/31/2017 96423 OFFICE/OUTPATIENT VISIT, Staci Infante 09/13/2017 41258 OFFICE/OUTPATIENT VISIT, Staci Infante 09/13/2017 Results There is no data. Encounters ACCT No. Visit Date/Time Discharge Status Pt. Type Provider Facility Loc./Unit Complaint [id number] 09/13/2017 11:20:00 09/13/2017 11:50:00 DIS Unknown [id number] 08/31/2017 00:00:00 Document Registration [id number] 07/29/2013 13:09:00 07/29/2013 16:34:00 DIS Emergency ARCHIE DEL RIO APRN [facility] ER COUGH/CHEST CONGESTION [id number] 07/12/2018 17:50:00 ACT Emergency MARIAH RIGGINS MD [facility] [id number] 04/26/2017 16:21:00 04/26/2017 23:59:59 CLS Outpatient MICHAEL RAMIREZ [id number] 08/24/2016 12:52:00 08/24/2016 23:59:59 CLS Outpatient DEMETRA CLARK [id number] 11/11/2014 14:30:04 11/11/2014 23:59:59 CLS Outpatient ROSALIO MAXWELL [id number] 07/22/2013 12:40:11 Document Registration [id number] 07/19/2013 10:13:32 Document Registration [id number] 01/03/2018 12:20:00 01/03/2018 23:59:59 CLS Outpatient EDER KLEIN APRN [facility] [id number] 10/29/2014 12:46:00 10/29/2014 23:59:59 CLS Outpatient STEPHANIE ECHAVARRIA [id number] 10/29/2014 12:46:00 10/29/2014 23:59:59 CLS Outpatient STEPHANIE ECHAVARRIA [id number] 08/11/2014 16:15:00 08/11/2014 23:59:59 CLS Outpatient VINCENT QUIÑONEZ RN [id number] 07/03/2014 14:30:00 07/03/2014 23:59:59 CLS Outpatient VINCENT QUIÑONEZ RN [id number] 06/18/2014 13:33:00 06/18/2014 23:59:59 CLS Outpatient STEPHANIE ECHAVARRIA [id number] 06/18/2014 13:30:00 06/18/2014 23:59:59 CLS Outpatient VINCENT QUIÑONEZ RN [id number] 05/27/2014 09:30:00 05/27/2014 23:59:59 CLS Outpatient VINCENT QUIÑONEZ RN [id number] 05/20/2014 14:00:00 05/20/2014 23:59:59 CLS Outpatient VINCENT QUIÑONEZ RN [id number] 04/29/2014 08:59:00 04/29/2014 23:59:59 CLS Outpatient VINCENT QUIÑONEZ RN [id number] 03/26/2014 13:49:00 03/26/2014 23:59:59 CLS Outpatient VINCENT QUIÑONEZ RN [id number] 03/25/2014 16:10:00 03/25/2014 23:59:59 CLS Outpatient VINCENT QUIÑONEZ RN [id number] 02/20/2014 11:27:00 02/20/2014 23:59:59 CLS Outpatient KEVIN GARCIA APRN [id number] 09/19/2013 14:50:00 09/19/2013 23:59:59 CLS Outpatient SUSI MCKENZIE DO [id number] 07/06/2013 13:11:00 07/06/2013 23:59:59 CLS Outpatient GARCIA ANNKEVIN [id number] 10/16/2012 13:10:00 10/16/2012 23:59:59 CLS Outpatient [id number] 10/16/2012 13:10:00 10/16/2012 23:59:59 CLS Outpatient [id number] 03/12/2013 13:20:00 Document Registration [id number] 02/13/2013 08:55:00 Document Registration [id number] 11/15/2012 11:06:00 Document Registration
[2018-07-12] MEDS ORDERED: BREX1TAB PO (18:01)
[2018-07-12] MEDS ORDERED: LISI1TAB6 PO (18:01)
--- NOTE | 2018-07-12 18:05 | ED Integumentary General ---
General Chief Complaint: Skin/Wound Problems Stated Complaint: RASH Nursing Triage Note: PT HAS RASH, STATES STARTED ITCHING A COUPLE DAYS AGO, STATES WAS A BLACK TINY INSECT HAS BITE AREAS Source: patient Exam Limitations: no limitations History of Present Illness Date Seen by Provider: Jul 12, 2018 Time Seen by Provider: 18:03 Initial Comments To ER with reports of sores. She states that she can shake her head and hair over the scene can see a bunch of little black spots which are actually bugs coming out of her scalp. She has some itching around her neck or so and extremities. Uncertain what these may be. Timing/Duration: yesterday, getting worse Severity: moderate Location: generalized Possible Cause: no cause identified Modifying Factors: worse with scratching Allergies and Home Medications Allergies Coded Allergies: No Known Drug Allergies (Unverified , 11/20/12) Home Medications Lisinopril/Hydrochlorothiazide 1 Each Tablet, 1 EACH PO DAILY, (Reported) Patient Home Medication List Home Medication List Reviewed: Yes Review of Systems Review of Systems Constitutional: see HPI EENTM: see HPI Respiratory: no symptoms reported Cardiovascular: no symptoms reported Genitourinary: no symptoms reported Musculoskeletal: no symptoms reported Skin: see HPI Psychiatric/Neurological: No Symptoms Reported Past Izvpvdy-Kwkwgr-Xquqcp Hx Patient Social History Alcohol Use: Denies Use Recreational Drug Use: No Smoking Status: Current Everyday Smoker Type Used: Cigarettes Recent Foreign Travel: No Contact w/Someone Who Travel: No Recent Infectious Disease Expo: No Recent Hopitalizations: No Past Medical History Surgeries: Yes (pyloric stenosis) Respiratory: No Cardiac: No Neurological: No SMALL ENGINE SPECIALIST History: Tubal Ligation Gastrointestinal: No Musculoskeletal: No Integumentary: No Family Medical History No Pertinent Family Hx Physical Exam Vital Signs Vital Signs - First Documented 07/12/18 17:53 Temp 98.7 Pulse 100 Resp 18 Pulse Ox 99 Capillary Refill : Less Than 3 Seconds General Appearance: WD/WN, no apparent distress HEENT: PERRL/EOMI, normal ENT inspection, other (I do not see any lice or other insect in her hair. She does have some erythematous bumps around her neck but it is unclear whether these are from insect bites or from her picking at herself.) Respiratory: no respiratory distress, no accessory muscle use Gastrointestinal: normal bowel sounds, non tender Extremities: normal range of motion, non-tender Neurologic/Psychiatric: alert, normal mood/affect, oriented x 3 Skin: normal color, warm/dry Skin Problem Location: neck Progress/Results/Core Measures Results/Orders Vital Signs/I&O 07/12/18 17:53 Temp 98.7 Pulse 100 Resp 18 B/P (MAP) Pulse Ox 99 Departure Impression Primary Impression: Skin rash Disposition: HOME, SELF-CARE Condition: Stable Departure-Patient Inst. Decision time for Depature: 18:05 Referrals: [facility] (PCP/Family) Primary Care Physician Patient Instructions: Skin Rash (DC) Add. Discharge Instructions: 1. Apply hydrocortisone cream twice daily 2. Use Benadryl 1-2 tablets every 4 hours as needed for itching. Follow-up with your doctor tomorrow if no improvement. All discharge instructions reviewed with patient and/or family. Voiced understanding. ARCHIE DEL RIO NITRATE OPERATOR Jul 12, 2018 18:05
[2018-07-12 18:10] VITALS: BP 138/88
[2018-07-12] MEDS ORDERED: diphenhydrAMINE 25 MG TAB (BENADRYL) PO ONE (18:15)
[2018-07-12] MEDS ORDERED: HYDROCORTISONE 1% CREAM 30 GM TUBE TOP SCH (21:00)
== END 2018-07-12 18:11 | disposition home or self-care (01) ==
LOC: EDUNIT# 17:48 → ER 17:50
DX: R21 Rash and other nonspecific skin eruption (principal); F17.210 Nicotine dependence, cigarettes, uncomplicated; Z98.51 Tubal ligation status
CPT/HCPCS: 99283

== ENCOUNTER 2019-05-19 15:29 | Emergency (ER) | payer MEDICAID ==
[~2019-05-19] VITALS: Ht 162 cm; Wt 84.0 kg
[~2019-05-19 15:29] MED LIST changes: +BREX1TAB PO; +LISI1TAB6 PO
--- NOTE | 2019-05-19 15:45 | ED Upper Extremity ---
General Chief Complaint: Upper Extremity Stated Complaint: R ELBOW PAIN Nursing Triage Note: ARRIVED VIA AMB TO TRIAGE. STATES SHE HIT HER ELBOW OVER A MONTH AGO AND IT STILL HURTS. GOING TO BE ADMITTED TO AN [facility] TOMORROW ET WOULD LIKE IT CHECKED OUT BEFORE HAND. Nursing Sepsis Screen: No Definite Risk Source: patient Exam Limitations: no limitations History of Present Illness Date Seen by Provider: May 19, 2019 Time Seen by Provider: 15:44 Initial Comments 44-year-old female patient presents with complaints of right elbow pain for approximately one month after hitting it on the wall by accident. Patient states she is being admitted to the addiction treatment Center in [place] tomorrow morning and was wanting the right elbow x-rayed before she is admitted. Denies seeing her primary care provider, urgent care, or quick care for this. Onset: other (1 month onset) Pain/Injury Location: right elbow Method of Injury: direct blow Modifying Factors: Worse With Movement Allergies and Home Medications Allergies Coded Allergies: No Known Drug Allergies (Unverified , 11/20/12) Home Medications Naproxen 500 Mg Tablet, 500 MG PO BID Prescribed by: VIRGIE BRIDGES on 05/19/191618 Prednisone 20 Mg Tab, 40 MG PO DAILY Prescribed by: VIRGIE BRIDGES on 05/19/19 161 Patient Home Medication List Home Medication List Reviewed: Yes Review of Systems Constitutional: no symptoms reported Respiratory: no symptoms reported Cardiovascular: no symptoms reported Musculoskeletal: see HPI Skin: no symptoms reported Psychiatric/Neurological: Denies Numbness, Denies Paresthesia, Denies Tingling, Denies Tremors, Denies Weakness All Other Systems Reviewed Negative Unless Noted: Yes (Negative excepted noted.) Past Bonvsbe-Giyoin-Uidgru Hx Past Med/Social Hx: Reviewed Nursing Past Med/Soc Hx Patient Social History Alcohol Use: Past History 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13) Smoking Status: Current Everyday Smoker Type Used: Cigarettes Recent Foreign Travel: No Contact w/Someone Who Travel: No Recent Infectious Disease Expo: No Recent Hopitalizations: No Past Medical History Surgeries: Yes (pyloric stenosis) Respiratory: No Cardiac: No Neurological: No MOTIVATIONAL SPEAKER History: Tubal Ligation Gastrointestinal: No Musculoskeletal: No Integumentary: No Family Medical History Reviewed Nursing Family Hx No Pertinent Family Hx Physical Exam Vital Signs Vital Signs - First Documented 05/19/19 15:30 Temp 36.9 Pulse 105 Resp 16 B/P (MAP) 148/99 (115) Pulse Ox 98 O2 Delivery Room Air Capillary Refill : Less Than 3 Seconds Height, Weight, BMI Height: 5'4.00" Weight: 150lbs. oz. 68.270590eq; 32.00 BMI Method:Stated General Appearance: WD/WN, no apparent distress Cardiovascular: normal peripheral pulses, regular rate, rhythm, no edema, no murmur Respiratory: lungs clear, normal breath sounds, no respiratory distress, no accessory muscle use Shoulder: normal inspection, non-tender, no evidence of injury, normal ROM Elbow/Forearm: normal inspection, no evidence of injury, normal ROM, Right, bone tenderness (right posterior elbow (see images)), pain (right elbow), soft tissue tenderness (right posterior elbow) Wrist: Yes normal inspection, Yes non-tender, Yes no evidence of injury, Yes normal ROM Hand: normal inspection, non-tender, no evidence of injury, normal ROM, Right Neurologic/Tendon: normal sensation, normal motor functions, normal tendon functions, responds to pain, no evidence tendon injury Neurologic/Psychiatric: no motor/sensory deficits, alert, normal mood/affect, oriented x 3 Skin: normal color, warm/dry; No ecchymosis Progress/Results/Core Measures Results/Orders My Orders Orders - VIRGIE BRIDGES Elbow, Right, 3 Views (05/19/19 15:44) Vital Signs/I&O 05/19/19 15:30 Temp 36.9 Pulse 105 Resp 16 B/P (MAP) 148/99 (115) Pulse Ox 98 O2 Delivery Room Air Blood Pressure Mean: 115 Diagnostic Imaging Diagonstic Imaging: Xray Plain Films/CT/US/NM/MRI: elbow Comments ELBOW, RIGHT, 3 VIEWS EXAMINATION: Right elbow series. INDICATION: Elbow pain. FINDINGS: Alignment of the elbow appears appropriate. Anterior humeral and radiocapitellar lines are normal. There is no elevation of the fat pads to suggest the presence of a joint effusion. There is no acute fracture or suspicious bone lesion. The soft tissues are unremarkable. IMPRESSION: Negative radiographs of the right elbow. Dictated on workstation # [id number] Reviewed: Reviewed by Me (radiology report reviewed by me) Departure Communication (Admissions) Patient seen and evaluated. X-ray of the right elbow obtained showing to be negative for acute bony abnormality. Patient discharged to home. Impression Primary Impression: Tendinitis of right elbow Disposition: 01 HOME, SELF-CARE Condition: Improved Departure-Patient Inst. Decision time for Depature: 16:18 Referrals: [facility] (PCP/Family) Primary Care Physician Patient Instructions: Contusion (DC), Tendonitis (DC) Add. Discharge Instructions: All discharge instructions reviewed with patient and/or family. Voiced understanding. Medications as instructed. Tylenol Extra Strength dugh-qcp-zpvq ter as directed for pain. Alternate ice packs and/or heat pads to the right elbow as needed. Avoid heavy lifting, pushing, and pulling greater than 12 pounds for 5-7 days with the right upper extremity, then increase activity as tolerated. Follow-up with your family practitioner if no improvement in symptoms in 7-10 days. Return in the emergency department for worsened symptoms or any other concerns. Scripts Naproxen (Naprosyn) 500 Mg Tablet 500 MG PO BID, #30 TAB 0 Refills Prov: VIRGIE BRIDGES 05/19/19 Prednisone (Prednisone) 20 Mg Tab 40 MG PO DAILY, #10 TAB 0 Refills Prov: VIRGIE BRIDGES 05/19/19 Images Extremities-Upper 1 - soft tissue and bony tenderness Copy Copies To 1: SUSI MCKENZIE GRETCHEN L PA May 19, 2019 15:44
--- NOTE | 2019-05-19 16:01 | Diagnostic Imaging Report ---
EXAMINATION: Right elbow series. INDICATION: Elbow pain. FINDINGS: Alignment of the elbow appears appropriate. Anterior humeral and radiocapitellar lines are normal. There is no elevation of the fat pads to suggest the presence of a joint effusion. There is no acute fracture or suspicious bone lesion. The soft tissues are unremarkable. IMPRESSION: Negative radiographs of the right elbow. Dictated by: Dictated on workstation # [id number]
[2019-05-19] MEDS ORDERED: NAPR-1071 PO (16:19)
[2019-05-19] MEDS ORDERED: PRD20T PO (16:19)
[2019-05-19 16:27] VITALS: BP 148/99
== END 2019-05-19 16:27 | disposition home or self-care (01) ==
LOC: ER 15:29 → EDUNIT# 15:29 → ER 16:27
DX: M25.521 Pain in right elbow (principal); F17.210 Nicotine dependence, cigarettes, uncomplicated; Z98.51 Tubal ligation status; W22.8XXA Striking against or struck by other objects, initial encounter
CPT/HCPCS: 73080